=== PATIENT | female | born 1985 | race American Indian/Alaskan Native ===

== ENCOUNTER 2018-03-21 11:30 | Observation (INO) | payer MEDICAID ==
--- NOTE | 2018-03-21 14:13 | Emergency Department Report ---
ED Chest Pain HPI - General Chief Complaint: Chest Pain Stated Complaint: CHEST PAINS Time Seen by Provider: 03/21/18 14:13 Source: patient Mode of arrival: Ambulatory Limitations: No Limitations - History of Present Illness Initial Comments: Patient said while she was at work this afternoon, she accidentally placed her chest on a magnet and her AICD made a loud noise. She began having chest pain afterwards. She came to the ED to have her AICD evaluated. MD Complaint: chest pain -: Sudden, This afternoon Onset: during rest Pain Location: left chest Pain Radiation: none Severity: moderate Severity scale (0 -10): 6 Quality: aching, heaviness Consistency: constant Improves With: nothing Worsens With: nothing re: denies: nausea, vomting, diaphoresis Other Symptoms: denies: fever, palpitations Treatments Prior to Arrival: none Aspirin use within the Past 7 Days: (0) No - Related Data On Oral Contraceptives: No Previous Rx's Medication Instructions Recorded Last Taken Type ALBUTEROL Inhaler (OR & NICU) 2 puff IH QID PRN #1 inhalation 12/24/13 Unknown Rx [ProAir HFA Inhaler] Furosemide [Lasix] 20 mg PO DAILY #20 tablet 12/24/13 Unknown Rx predniSONE [Deltasone] 20 mg PO QDAY #5 tab 12/24/13 Unknown Rx ALBUTEROL NEB's [Proventil 0.083% 2.5 mg IH Q4HR PRN #30 neb 10/04/14 Unknown Rx NEBS] predniSONE [Deltasone] 50 mg PO QDAY #4 tab 10/04/14 Unknown Rx Albuterol Sulfate [Ventolin HFA] 2 puff IH Q4H PRN #1 hfa.aer.ad 02/27/15 Unknown Rx HYDROcodone/APAP 5-325 [[place] 1 each PO Q6HR PRN #20 tablet 02/27/15 Unknown Rx 5-325 mg TAB] Ibuprofen [Motrin 600 MG tab] 600 mg PO Q8H PRN #40 tablet 02/27/15 Unknown Rx metroNIDAZOLE [Flagyl TAB] 500 mg PO Q12HR #20 tab 02/27/15 Unknown Rx Allergies Allergy/AdvReac Type Severity Reaction Status Date / Time No Known Allergies Allergy Verified 04/07/16 16:41 Heart Score - HEART Score History: Slightly suspicious EKG: Non-specific Age: < 45 Risk factors: 1-2 risk factors Troponin: < normal limit HEART Score: 2 - Critical Actions Critical Actions: 0-3 pts:0.9-1.7%risk of adverse cardiac event.Candidate for discharge ED Review of Systems ROS: Stated complaint: CHEST PAINS Other details as noted in HPI Comment: All other systems reviewed and negative Constitutional: denies: chills, fever Eyes: denies: eye pain ENT: denies: ear pain Respiratory: denies: cough, shortness of breath Cardiovascular: chest pain. denies: palpitations, dyspnea on exertion, orthopnea Endocrine: no symptoms reported Gastrointestinal: denies: abdominal pain, nausea, vomiting, diarrhea Genitourinary: denies: urgency, dysuria Musculoskeletal: denies: back pain, joint swelling Skin: denies: rash, lesions Neurological: denies: headache, weakness Psychiatric: denies: anxiety, depression Hematological/Lymphatic: denies: easy bleeding, easy bruising ED Past Medical Hx - Past Medical History Previous Medical History?: Yes Hx Hypertension: Yes Hx Congestive Heart Failure: Yes Hx GERD: Yes Hx Asthma: Yes Additional medical history: sleep apnea - Surgical History Hx Internal Defibrillator: Yes (replaced 09/30/2016 serial #[id number] model # [id number] [employer] [phone]) Hx Cholecystectomy: Yes Additional Surgical History: DC section. Tubal ligation. [employer] replaced 04/[address] Victor Hugo Estrada MD [phone], serial #[id number] model #[id number] , [employer] [phone] - Social History Smoking Status: Former Smoker Substance Use Type: None - Medications Home Medications: Home Medications Medication Instructions Recorded Confirmed Last Taken Type ALBUTEROL Inhaler (OR & NICU) 2 puff IH QID PRN #1 inhalation 12/24/13 Unknown Rx [ProAir HFA Inhaler] Furosemide [Lasix] 20 mg PO DAILY #20 tablet 12/24/13 Unknown Rx predniSONE [Deltasone] 20 mg PO QDAY #5 tab 12/24/13 Unknown Rx ALBUTEROL NEB's [Proventil 0.083% 2.5 mg IH Q4HR PRN #30 neb 10/04/14 Unknown Rx NEBS] predniSONE [Deltasone] 50 mg PO QDAY #4 tab 10/04/14 Unknown Rx Albuterol Sulfate [Ventolin HFA] 2 puff IH Q4H PRN #1 hfa.aer.ad 02/27/15 Unknown Rx HYDROcodone/APAP 5-325 [[place] 1 each PO Q6HR PRN #20 tablet 02/27/15 Unknown Rx 5-325 mg TAB] Ibuprofen [Motrin 600 MG tab] 600 mg PO Q8H PRN #40 tablet 02/27/15 Unknown Rx metroNIDAZOLE [Flagyl TAB] 500 mg PO Q12HR #20 tab 02/27/15 Unknown Rx ED Physical Exam - General Limitations: No Limitations General appearance: alert, in no apparent distress, obese - Head Head exam: Present: atraumatic, normocephalic, normal inspection - Eye Eye exam: Present: normal appearance, PERRL, EOMI Pupils: Present: normal accommodation - ENT ENT exam: Present: normal exam, normal orophraynx, mucous membranes moist - Neck Neck exam: Present: normal inspection, full ROM. Absent: tenderness - Respiratory Respiratory exam: Present: normal lung sounds bilaterally. Absent: respiratory distress, wheezes, rales, rhonchi, stridor - Cardiovascular Cardiovascular Exam: Present: regular rate, normal rhythm, normal heart sounds - GI/Abdominal GI/Abdominal exam: Present: soft, normal bowel sounds. Absent: distended, tenderness, guarding, rebound, rigid - Extremities Exam Extremities exam: Present: normal inspection, full ROM, normal capillary refill. Absent: tenderness - Back Exam Back exam: Present: normal inspection, full ROM. Absent: tenderness - Neurological Exam Neurological exam: Present: alert, oriented X3, CN II-XII intact - Psychiatric Psychiatric exam: Present: normal affect, normal mood - Skin Skin exam: Present: warm, dry, intact, normal color. Absent: rash ED Course Vital Signs 03/21/18 03/21/18 11:40 14:40 Temperature 98.2 F 98.3 F Pulse Rate 75 69 Respiratory 18 16 Rate Blood Pressure 122/72 Blood Pressure 147/82 [Left] O2 Sat by Pulse 100 100 Oximetry - Reevaluation(s) Reevaluation #1: 03/21/18 16:50 I consulted Correction Warden tourist information assistant Dr Jones and the mid level provider came to the ED and evaluated patient and recommend interrogation of the AICD. 03/21/18 17:01 Patient care was discussed with the hospitalist tourist information assistant Dr Todd. He will admit patient to the hospital for further evaluation. 03/21/18 17:07 I called the real estate representative for [employer] and he said the earliest they can send someone to interrogate the AICD is tomorrow morning. Patient will be admitted to the hospital. PRINCESS score - Princess Score Age > 65: (0) No Aspirin use within the Past 7 Days: (0) No 3 or more CAD Risk Factors: (0) No 2 or more Angina events in past 24 hrs: (0) No Known CAD with more than 50% Stenosis: (0) No Elevated Cardiac Markers: (0) No ST Deviation Greater than 0.5mm: (0) No PRINCESS Score: 0 ED Medical Decision Making - Lab Data Result diagrams: 03/21/18 14:53 03/21/18 14:53 - EKG Data -: EKG Interpreted by Me EKG shows normal: sinus rhythm Rate: normal (74) - EKG Data When compared to previous EKG there are: changes noted Interpretation: nonspecific ST-T wave erendira, LVH 03/21/18 15:18 No STEMI. - Radiology Data Radiology results: report reviewed, image reviewed - Medical Decision Making Chest Pain. Critical care attestation.: If time is entered above; I have spent that time in minutes in the direct care of this critically ill patient, excluding procedure time. ED Disposition Clinical Impression: Chest pain Disposition: OP ADMIT IP TO THIS HOSP Is pt being admited?: Yes Does the pt Need Aspirin: Yes Condition: Stable Instructions: Chest Pain (ED) Referrals: PRIMARY CARE, [Primary Care Provider] - 3-5 Days Time of Disposition: 17:04
[2018-03-21] MEDS ORDERED: BABY ASPIRIN PO ONE (14:25)
--- NOTE | 2018-03-21 15:13 | XRay Report ---
AP CHEST: HISTORY: chest pain AP view of the chest demonstrates a normal mediastinal and cardiac contour with clear lungs and normal bony and soft tissue structures. A single lead pacemaker device terminates in the right ventricle. IMPRESSION: Unremarkable AP chest.
[2018-03-21 15:32] LABS: Alanine Aminotransferase 8 units/L (7-56); Albumin 3.6 g/dL (3.9-5); BUN/Creatinine Ratio 15; Blood Urea Nitrogen 9 mg/dL (7-17); Calcium 8.5 mg/dL (8.4-10.2); Hemolysis Index 5
[2018-03-21 15:57] LABS: Basophils % (Auto) 0.5 % (0.0-1.8); Eosinophils # (Auto) 0.4 K/mm3 (0.0-0.4); Hematocrit 34.7 % (30.3-42.9); Hemoglobin 11.1 gm/dl (10.1-14.3); Mean Corpuscular HGB Conc 32 % (30-34); Mean Corpuscular Volume 73 fl (79-97); Monocytes # (Auto) 0.4 K/mm3 (0.0-0.8); Monocytes % (Auto) 4.7 % (0.0-7.3); Platelet Count 360 K/mm3 (140-440); Red Blood Count 4.73 M/mm3 (3.65-5.03); Red Cell Distribution Width 15.4 % (13.2-15.2)
[2018-03-21 16:03] LABS: Mean Corpuscular Hemoglobin 24 pg (28-32)
[2018-03-21 16:08] LABS: INR 1.02 (0.87-1.13); Partial Thromboplastin Time 33.2 Sec. (24.2-36.6)
--- NOTE | 2018-03-21 16:22 | Consultation ---
History of Present Illness Consult date: 03/21/18 Requesting physician: DEISY ELMORE Consult reason: chest pain, other (AICD interrogation ) History of present illness: The pt is a 32 YO female with a past medical history significant for HTN, DM, rupali- cardiomyopathy, AICD in situ (placed in 2011 following the of her twins). She recently moved to [place] from [place]. She presented with complaints of chest pain surrounding her defibrillator and noise from her defibrillator. 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 She then heard a "crunching" sound coming from her AICD site and decided to present to the ED for further evaluation. She states that she is currently experiencing a burning pain surrounding her AICD site. She denies any other complaints. She last saw her surgical training specialist in [place] one year ago and has had no follow up since then. Past History Past Medical History: diabetes, heart failure, hypertension Past Surgical History: Other (AICD in situ) Social history: denies: smoking, alcohol abuse, prescription drug abuse Medications and Allergies Allergies Allergy/AdvReac Type Severity Reaction Status Date / Time No Known Allergies Allergy Verified 04/07/16 16:41 Home Medications Medication Instructions Recorded Confirmed Last Taken Type ALBUTEROL Inhaler (OR & NICU) 2 puff IH QID PRN #1 inhalation 12/24/13 Unknown Rx [ProAir HFA Inhaler] Furosemide [Lasix] 20 mg PO DAILY #20 tablet 12/24/13 Unknown Rx predniSONE [Deltasone] 20 mg PO QDAY #5 tab 12/24/13 Unknown Rx ALBUTEROL NEB's [Proventil 0.083% 2.5 mg IH Q4HR PRN #30 neb 10/04/14 Unknown Rx NEBS] predniSONE [Deltasone] 50 mg PO QDAY #4 tab 10/04/14 Unknown Rx Albuterol Sulfate [Ventolin HFA] 2 puff IH Q4H PRN #1 hfa.aer.ad 02/27/15 Unknown Rx HYDROcodone/APAP 5-325 [[place] 1 each PO Q6HR PRN #20 tablet 02/27/15 Unknown Rx 5-325 mg TAB] Ibuprofen [Motrin 600 MG tab] 600 mg PO Q8H PRN #40 tablet 02/27/15 Unknown Rx metroNIDAZOLE [Flagyl TAB] 500 mg PO Q12HR #20 tab 02/27/15 Unknown Rx Review of Systems Constitutional: no weight loss, no weight gain, no fever, no chills, no sweats Ears, nose, mouth and throat: no ear pain, no nose pain, no sinus pressure, no sinus pain Cardiovascular: chest pain, high blood pressure, no orthopnea, no palpitations, no rapid/irregular heart beat, no edema, no syncope, no lightheadedness, no shortness of breath, no dyspnea on exertion Respiratory: no cough, no shortness of breath, no dyspnea on exertion, no congestion, no wheezing, no pain on inspiration Gastrointestinal: no abdominal pain, no nausea, no vomiting, no diarrhea, no constipation, no change in bowel habits Genitourinary Female: no pelvic pain, no flank pain, no dysuria, no urinary frequency, no urgency Musculoskeletal: no neck stiffness, no neck pain Integumentary: no rash, no pruritis, no redness, no sores, no wounds Neurological: no head injury, no paralysis, no weakness, no parathesias, no numbness, no tingling, no seizures, no syncope Psychiatric: no anxiety Endocrine: no cold intolerance, no heat intolerance Hematologic/Lymphatic: no easy bruising, no easy bleeding Allergic/Immunologic: no urticaria, no wheezing Physical Examination Vital Signs Temp Pulse Resp BP Pulse Ox 98.2 F 75 18 122/72 100 03/21/18 11:40 03/21/18 11:40 03/21/18 11:40 03/21/18 11:40 03/21/18 11:40 General appearance: no acute distress HEENT: Positive: PERRL, Normocephaly, Mucus Membranes Moist Neck: Positive: neck supple, trachea midline Cardiac: Positive: Reg Rate and Rhythm, S1/S2 Lungs: Positive: clear to auscultation Neuro: Positive: Grossly Intact Abdomen: Positive: Soft. Negative: Tender Skin: Positive: Clear. Negative: Rash, Wound Musculoskeletal: No Fluid Collection, No Pain, Normal Range of Motion Extremities: Absent: edema Results 03/21/18 14:53 03/21/18 14:53 Cardiac Enzymes 03/21/18 Range/Units 14:53 AST 12 (5-40) units/L Coagulation 03/21/18 Range/Units 14:53 PT 13.9 (12.2-14.9) Sec. INR 1.02 (0.87-1.13) APTT 33.2 (24.2-36.6) Sec. CBC 03/21/18 Range/Units 14:53 WBC 8.9 (4.5-11.0) K/mm3 RBC 4.73 (3.65-5.03) M/mm3 Hgb 11.1 (10.1-14.3) gm/dl Hct 34.7 (30.3-42.9) % Plt Count 360 (140-440) K/mm3 Lymph # 3.0 (1.2-5.4) K/mm3 [place] # 0.4 (0.0-0.8) K/mm3 Eos # 0.4 (0.0-0.4) K/mm3 Baso # 0.0 (0.0-0.1) K/mm3 Comprehensive Metabolic Panel 03/21/18 Range/Units 14:53 Sodium 141 (137-145) mmol/L Potassium 4.1 (3.6-5.0) mmol/L Chloride 104.1 (98-107) mmol/L Carbon Dioxide 24 (22-30) mmol/L BUN 9 (7-17) mg/dL Creatinine 0.6 L (0.7-1.2) mg/dL Glucose 100 (65-100) mg/dL Calcium 8.5 (8.4-10.2) mg/dL AST 12 (5-40) units/L ALT 8 (7-56) units/L Alkaline Phosphatase 98 (35-129) units/L Total Protein 6.6 (6.3-8.2) g/dL Albumin 3.6 L (3.9-5) g/dL - Imaging and Cardiology EKG: report reviewed, image reviewed EKG interpretations - Telemetry EKG Rhythm: Sinus Rhythm - EKG Sinus rhythms and dysrhythmias: sinus rhythm Assessment and Plan Resume home cardiac regimen. Await AICD interrogation. The patient has been seen in conjunction with Dr. Ibarra who agrees with the assessment and plan of care. - Patient Problems (1) Chest pain Current Visit: Yes Status: Acute Qualifiers: Chest pain type: unspecified Qualified Code(s): R07.9 - Chest pain, unspecified (2) Cardiomyopathy Current Visit: Yes Status: Chronic (3) Automatic implantable cardioverter-defibrillator in situ Current Visit: Yes Status: Chronic (4) HTN (hypertension) Current Visit: Yes Status: Chronic (5) Diabetes Current Visit: Yes Status: Chronic (6) Obesity Current Visit: Yes Status: Chronic
[2018-03-21] MEDS ORDERED: ZOFRAN ONE ×2 (17:51→21:28)
[2018-03-21] MEDS ORDERED: ZOFRAN IV ONE ×2 (17:54→21:24)
[2018-03-21] MEDS ORDERED: MORPHINE ONE (18:54)
[2018-03-21] MEDS: MORPHINE IV PRN (18:57)
[2018-03-21 18:58] LABS: Bilirubin,Urine NEG (Negative); Blood,Urine SM (Negative); Color,Urine Yellow (Yellow); Mucus,Urine 1+ /HPF; Protein,Urine <15 mg/dL mg/dL (Negative); WBC,Urine < 1.0 /HPF (0.0-6.0)
[2018-03-21 19:04] LABS: Amphetamine Screen,Urine PRESUMPTIVE NEGATIVE; Benzodiazepines Screen,Urine PRESUMPTIVE NEGATIVE; Cannabinoid Screen,Urine PRESUMPTIVE NEGATIVE; Cocaine Screen,Urine PRESUMPTIVE NEGATIVE; Methadone Screen,Urine PRESUMPTIVE NEGATIVE; Opiate Screen,Urine PRESUMPTIVE NEGATIVE
--- NOTE | 2018-03-21 22:01 | History and Physical Report ---
History of Present Illness Date of examination: 03/21/18 Date of admission: 03/21/18 17:05 Chief complaint: CC Patient complains that she was exposed to a magnet at work and her pacemaker gave some crunching sound No Shock History of present illness: History of Present Illness The pt is a 32 YO female with a past medical history significant for HTN, DM, rupali- cardiomyopathy, AICD in situ (placed in 2011 following the of her twins).She presented with complaints of chest pain surrounding her defibrillator and noise from her defibrillator. 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 She then heard a "crunching" sound coming from her AICD site and decided to present to the ED for further evaluation. She states that she is currently experiencing a burning pain surrounding her AICD site. She denies any other complaints. She last saw her firewall security engineer in [place] one year ago and has had no follow up since then. Past History Past Medical History: diabetes, heart failure, hypertension Past Surgical History: Other (AICD in situ) Social history: denies: smoking, alcohol abuse, prescription drug abuse Review of Systems Constitutional: no weight loss, no weight gain, no fever, no chills, no sweats Ears, nose, mouth and throat: no ear pain, no nose pain, no sinus pressure, no sinus pain Cardiovascular: chest pain, high blood pressure, no orthopnea, no palpitations, no rapid/irregular heart beat, no edema, no syncope, no lightheadedness, no shortness of breath, no dyspnea on exertion Respiratory: no cough, no shortness of breath, no dyspnea on exertion, no congestion, no wheezing, no pain on inspiration Gastrointestinal: no abdominal pain, no nausea, no vomiting, no diarrhea, no constipation, no change in bowel habits Genitourinary Female: no pelvic pain, no flank pain, no dysuria, no urinary frequency, no urgency Musculoskeletal: no neck stiffness, no neck pain Integumentary: no rash, no pruritis, no redness, no sores, no wounds Neurological: no head injury, no paralysis, no weakness, no parathesias, no numbness, no tingling, no seizures, no syncope Psychiatric: no anxiety Endocrine: no cold intolerance, no heat intolerance Hematologic/Lymphatic: no easy bruising, no easy bleeding Allergic/Immunologic: no urticaria, no wheezing Past History Past Medical History: diabetes, heart failure, hypertension Past Surgical History: Other (AICD in situ) Social history: denies: smoking, alcohol abuse, prescription drug abuse Medications and Allergies Allergies Allergy/AdvReac Type Severity Reaction Status Date / Time No Known Allergies Allergy Verified 04/07/16 16:41 Home Medications Medication Instructions Recorded Confirmed Last Taken Type Carvedilol [Coreg] 6.25 mg PO BID 03/21/18 03/21/18 Unknown History Digoxin [Lanoxin] 0.25 mg PO DAILY 03/21/18 03/21/18 Unknown History Furosemide [Lasix TAB] 40 mg PO QDAY 03/21/18 03/21/18 Unknown History Metformin HCl [Metformin HCl ER] 1,000 mg PO QDAY 03/21/18 03/21/18 Unknown History Active Meds: Active Medications Morphine Sulfate (Morphine) 2 mg IV Q3H PRN PRN Reason: Pain, Moderate (4-6) Last Admin: 03/21/18 18:57 Dose: 2 mg Exam - Constitutional Vitals: Temp Pulse Resp BP Pulse Ox 98.5 F 74 14 132/66 100 03/21/18 19:15 03/21/18 19:15 03/21/18 19:15 03/21/18 19:15 03/21/18 19:15 General appearance: Present: no acute distress, well-nourished - EENT Eyes: Present: PERRL ENT: hearing intact, clear oral mucosa - Neck Neck: Present: supple, normal ROM - Respiratory Respiratory effort: normal Respiratory: bilateral: CTA - Cardiovascular Heart Sounds: Present: S1 & S2. Absent: rub, click - Extremities Extremities: pulses symmetrical, No edema Peripheral Pulses: within normal limits - Abdominal General gastrointestinal: Present: soft, non-tender, non-distended, normal bowel sounds Female genitourinary: Present: normal - Integumentary Integumentary: Present: clear, warm, dry - Musculoskeletal Musculoskeletal: gait normal, strength equal bilaterally - Psychiatric Psychiatric: appropriate mood/affect, intact judgment & insight - Neurologic Neurologic: CNII-XII intact, moves all extremities Results - Labs CBC & Chem 7: 03/21/18 14:53 03/21/18 14:53 Labs: Laboratory Last Values WBC 8.9 K/mm3 (4.5-11.0) 03/21/18 14:53 RBC 4.73 M/mm3 (3.65-5.03) 03/21/18 14:53 Hgb 11.1 gm/dl (10.1-14.3) 03/21/18 14:53 Hct 34.7 % (30.3-42.9) 03/21/18 14:53 MCV 73 fl (79-97) L 03/21/18 14:53 MCH 24 pg (28-32) L 03/21/18 14:53 MCHC 32 % (30-34) 03/21/18 14:53 RDW 15.4 % (13.2-15.2) H 03/21/18 14:53 Plt Count 360 K/mm3 (140-440) 03/21/18 14:53 Lymph % (Auto) 34.0 % (13.4-35.0) 03/21/18 14:53 [place] % (Auto) 4.7 % (0.0-7.3) 03/21/18 14:53 Eos % (Auto) 5.0 % (0.0-4.3) H 03/21/18 14:53 Baso % (Auto) 0.5 % (0.0-1.8) 03/21/18 14:53 Lymph # 3.0 K/mm3 (1.2-5.4) 03/21/18 14:53 [place] # 0.4 K/mm3 (0.0-0.8) 03/21/18 14:53 Eos # 0.4 K/mm3 (0.0-0.4) 03/21/18 14:53 Baso # 0.0 K/mm3 (0.0-0.1) 03/21/18 14:53 Seg Neutrophils % 55.8 % (40.0-70.0) 03/21/18 14:53 Seg Neutrophils # 4.9 K/mm3 (1.8-7.7) 03/21/18 14:53 PT 13.9 Sec. (12.2-14.9) 03/21/18 14:53 INR 1.02 (0.87-1.13) 03/21/18 14:53 APTT 33.2 Sec. (24.2-36.6) 03/21/18 14:53 Sodium 141 mmol/L (137-145) 03/21/18 14:53 Potassium 4.1 mmol/L (3.6-5.0) 03/21/18 14:53 Chloride 104.1 mmol/L (98-107) 03/21/18 14:53 Carbon Dioxide 24 mmol/L (22-30) 03/21/18 14:53 Anion Gap 17 mmol/L 03/21/18 14:53 BUN 9 mg/dL (7-17) 03/21/18 14:53 Creatinine 0.6 mg/dL (0.7-1.2) L 03/21/18 14:53 Estimated GFR > 60 ml/min 03/21/18 14:53 BUN/Creatinine Ratio 15 % 03/21/18 14:53 Glucose 100 mg/dL (65-100) 03/21/18 14:53 Calcium 8.5 mg/dL (8.4-10.2) 03/21/18 14:53 Total Bilirubin 0.20 mg/dL (0.1-1.2) 03/21/18 14:53 AST 12 units/L (5-40) 03/21/18 14:53 ALT 8 units/L (7-56) 03/21/18 14:53 Alkaline Phosphatase 98 units/L (35-129) 03/21/18 14:53 Troponin T < 0.010 ng/mL (0.00-0.029) 03/21/18 14:53 Total Protein 6.6 g/dL (6.3-8.2) 03/21/18 14:53 Albumin 3.6 g/dL (3.9-5) L 03/21/18 14:53 Albumin/Globulin Ratio 1.2 % 03/21/18 14:53 Urine Color Yellow (Yellow) 03/21/18 18:44 Urine Turbidity Clear (Clear) 03/21/18 18:44 Urine pH 5.0 (5.0-7.0) 03/21/18 18:44 Ur Specific [place] 1.029 (1.003-1.030) 03/21/18 18:44 Urine Protein <15 mg/dl mg/dL (Negative) 03/21/18 18:44 Urine Glucose (UA) Neg mg/dL (Negative) 03/21/18 18:44 Urine Ketones Neg mg/dL (Negative) 03/21/18 18:44 Urine Blood Sm (Negative) 03/21/18 18:44 Urine Nitrite Neg (Negative) 03/21/18 18:44 Urine Bilirubin Neg (Negative) 03/21/18 18:44 Urine Urobilinogen 4.0 mg/dL (<2.0) 03/21/18 18:44 Ur Leukocyte Esterase Neg (Negative) 03/21/18 18:44 Urine WBC (Auto) < 1.0 /HPF (0.0-6.0) 03/21/18 18:44 Urine RBC (Auto) 4.0 /HPF (0.0-6.0) 03/21/18 18:44 U Epithel Cells (Auto) 1.0 /HPF (0-13.0) 03/21/18 18:44 Urine Mucus 1+ /HPF 03/21/18 18:44 Urine Opiates Screen Presumptive negative 03/21/18 18:44 Urine Methadone Screen Presumptive negative 03/21/18 18:44 Ur Barbiturates Screen Presumptive negative 03/21/18 18:44 Ur Phencyclidine Scrn Presumptive negative 03/21/18 18:44 Ur Amphetamines Screen Presumptive negative 03/21/18 18:44 U Benzodiazepines Scrn Presumptive negative 03/21/18 18:44 Urine Cocaine Screen Presumptive negative 03/21/18 18:44 U Marijuana (THC) Screen Presumptive negative 03/21/18 18:44 Drugs of Abuse Note Disclamer 03/21/18 18:44 Assessment and Plan Advance Directives: Yes (FC) VTE prophylaxis?: Chemical Plan of care discussed with patient/family: Yes - Patient Problems (1) Implantable defibrillator reprogramming/check Current Visit: Yes Status: Acute Plan to address problem: Needs interrogation [employer] to interrogate on morning Patient may be discharged after interrogation -if Cleared Cardiology consulted (2) Chest pain Current Visit: Yes Status: Inactive Qualifiers: Chest pain type: unspecified Qualified Code(s): R07.9 - Chest pain, unspecified Plan to address problem: There was no chest pain Had some discomfort from exposure to magnet--very transient discomfort No stress test ordered (3) Cardiomyopathy Current Visit: Yes Status: Chronic (4) Diabetes Current Visit: Yes Status: Chronic Qualifiers: Diabetes mellitus type: type 2 Plan to address problem: coverage (5) HTN (hypertension) Current Visit: Yes Status: Chronic Qualifiers: Hypertension type: essential hypertension Qualified Code(s): I10 - Essential (primary) hypertension Plan to address problem: Cont antihypertensives (6) DVT prophylaxis Current Visit: Yes Status: Acute Plan to address problem: on lovenox
[2018-03-22] MEDS: MORPHINE IV PRN ×2 (00:27→10:20)
[2018-03-22] MEDS: COREG PO SCH ×2 (01:44→10:21)
[2018-03-22 05:30] VITALS: BP 140/92
[2018-03-22] MEDS ORDERED: GLUCOPHAGE XR PO SCH (08:00)
--- NOTE | 2018-03-22 08:57 | Discharge Summary ---
Providers - Providers Date of Admission: 03/21/18 17:05 Date of discharge: 03/22/18 Attending physician: CHELSEA KRAUSE 03/21/18 16:07 Consult to Physician [CONS] Stat Comment: Consulting Provider: EVERETTE BENOIT Physician Instructions: Reason For Exam: Chest Pain Primary care physician: WELDING PANTOGRAPH MACHINE OPERATOR Hospitalization Condition: Stable Hospital course: Patient is a 32 yo woman with a past medical history significant for HTN, DM, rupali- cardiomyopathy, AICD in situ (placed in 2011 following the of her twins).She presented with complaints of chest pain surrounding her defibrillator and noise from her defibrillator. 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 She then heard a "crunching" sound coming from her AICD site and decided to present to the ED for further evaluation. She states that she is currently experiencing a burning pain surrounding her AICD site. She denies any other complaints. She last saw her toggle press folder and feeder in [place] one year ago and has had no follow up since then (1) Implantable defibrillator reprogramming/check Current Visit: Yes Status: Acute Plan to address problem: Needs interrogation [email or web address] to interrogate Today Patient may be discharged after interrogation if AICD normal per Cardiology but she couldn't wait for the Substation Maintenance Technician to review the results, so she signed out AMA (2) Chest pain Current Visit: Yes Status: Inactive Qualifiers: Chest pain type: unspecified Qualified Code(s): R07.9 - Chest pain, unspecified Plan to address problem: There was no chest pain Had some discomfort from exposure to magnet--very transient discomfort No stress test ordered (3) Cardiomyopathy Current Visit: Yes Status: Chronic (4) Diabetes Current Visit: Yes Status: Chronic Qualifiers: Diabetes mellitus type: type 2 Plan to address problem: coverage (5) HTN (hypertension) Current Visit: Yes Status: Chronic Qualifiers: Hypertension type: essential hypertension Qualified Code(s): I10 - Essential (primary) hypertension Plan to address problem: Cont antihypertensives (6) DVT prophylaxis Current Visit: Yes Status: Acute Plan to address problem: on lovenox Disposition: DC-07 LEFT AGAINST MED ADVICE Time spent for discharge: 32 minutes Core Measure Documentation - Palliative Care Palliative Care/ Comfort Measures: Not Applicable - Core Measures Any of the following diagnoses?: none - VTE Discharge Requirements Deep Vein Thrombosis/Pulmonary Embolism Present on Admission: No Has pt received <5 days of overlap therapy or INR<2.0: No Anticoagulant overlap therapy prescribed at discharge: No Contraindication No Overlap Therapy order at DC: Not Indicated Exam - Physical Exam Narrative exam: GEN: WDWN, NAD, Awake, Alert, Orientated HEENT: NCAT, EOMI, PERRL, OP Clear NECK: supple, no adenopathy, no thyromegaly, no JVD CVS/HEART: RRR, normal S1S2, pulses present bilaterally CHEST/LUNGS: CTA B, Symmetrical chest expansion, good air entry bilaterally GI/Abdomen: soft, NTND, good bowel sounds, no guarding or rebound /Bladder: no suprapubic tenderness, no CVA or paraspinal tenderness EXT/Skin: no c/c/e, no obvious rash MSK: FROM x 4 Neuro: CN 2-12 grossly intact, no new focal deficits Psych: calm - Constitutional Vitals: Temp Pulse Resp BP Pulse Ox 97.9 F 74 20 140/92 98 03/22/18 05:00 03/22/18 05:00 03/22/18 05:00 03/22/18 05:00 03/22/18 05:00 Plan Follow up with: ROSANNA SPARKS MD [Primary Care Provider] - 3-5 Days EVERETTE BENOIT MD [Staff Physician] - 7 Days
[2018-03-22] MEDS ORDERED: LANOXIN PO SCH (10:00)
[2018-03-22] MEDS ORDERED: LASIX PO SCH (10:00)
[2018-03-22] MEDS ORDERED: HumaLOG SUB-Q SCH (11:30)
--- NOTE | 2018-03-22 11:46 | Event Note ---
Date: 03/22/18 Spoke with device rep - device interrogation this AM revealed normal device function. Pt left AGAINST MEDICAL ADVICE prior to cardiology evaluation. Martin ARREOLA NP / DR. BENOIT
== END 2018-03-22 11:44 | disposition left against medical advice (07) ==
LOC: ED 11:30 → 4A 17:05 → INTOOBSV 17:05 → 4A 19:53
PROVIDERS: ADMIT Internal Medicine; ATTEND Internal Medicine
DX: Z45.02 Encounter for adjustment and management of automatic implantable cardiac defibrillator (principal); I42.9 Cardiomyopathy, unspecified; I11.0 Hypertensive heart disease with heart failure; I50.9 Heart failure, unspecified; E11.9 Type 2 diabetes mellitus without complications; E66.9 Obesity, unspecified; Z95.810 Presence of automatic (implantable) cardiac defibrillator; Z79.84 Long term (current) use of oral hypoglycemic drugs; Z79.899 Other long term (current) drug therapy
CPT/HCPCS: 36415; 71045; 80053; 80307; 81001; 84484; 85025; 85610; 85730; 93005; 93010; 96374; 96375; 96376; G0378; J2270; J2405

== ENCOUNTER 2019-03-20 19:40 | Emergency (ER) | payer MEDICAID ==
--- NOTE | 2019-03-20 20:01 | Event Note ---
ED Screening Note Date of service: 03/20/19 (n) Time: 19:57 ED Screening Note: presents with cc of sob/ coughing x 2days admits tightening to chest area, midsternal cp with couc This initial assessment/diagnostic orders/clinical plan/treatment(s) is/are subject to change based on patients health status, clinical progression and re- assessment by fellow clinical providers in the ED. Further treatment and workup at subsequent clinical providers discretion. Patient/guardian urged not to elope from the ED as their condition may be serious if not clinically assessed and managed. Initial orders include: labs cxr
[2019-03-20 20:51] LABS: Hematocrit 37.7 % (30.3-42.9); Hemoglobin 11.9 gm/dl (10.1-14.3); Red Blood Count 5.11 M/mm3 (3.65-5.03)
[2019-03-20 20:52] LABS: Mean Corpuscular HGB Conc 32 % (30-34); Mean Corpuscular Volume 74 fl (79-97); Platelet Count 410 K/mm3 (140-440); Red Cell Distribution Width 16.5 % (13.2-15.2)
[2019-03-20] MEDS ORDERED: DUONEB *Not for PRN Use IH ONE (21:04)
[2019-03-20 21:51] LABS: BUN/Creatinine Ratio 16; Blood Urea Nitrogen 11 mg/dL (7-17)
[2019-03-20 21:52] LABS: Creatine Kinase MB 1.6 ng/mL (0.0-4.0)
--- NOTE | 2019-03-20 22:05 | XRay Report ---
CHEST 2 VIEWS INDICATION / CLINICAL INFORMATION: Dyspnea. COMPARISON: None available. FINDINGS: SUPPORT DEVICES: ICD on the left HEART / MEDIASTINUM: No significant abnormality. LUNGS / PLEURA: No significant pulmonary or pleural abnormality. No pneumothorax. ADDITIONAL FINDINGS: No significant additional findings. IMPRESSION: 1. No acute findings. Signer Name: Vijay Smith MD Signed: 03/20/2019 10:01 PM Workstation Name: [id number]
[2019-03-20] MEDS ORDERED: ATROVENT IH ONE (22:16)
[2019-03-20] MEDS ORDERED: SOLU-Medrol IM ONE (22:16)
[2019-03-20] MEDS ORDERED: PROVENTIL IH ONE (22:16)
--- NOTE | 2019-03-20 22:41 | Emergency Department Report ---
ED Shortness of Breath HPI - General Chief Complaint: Dyspnea/Respdistress Stated Complaint: COUGH, TIGHTNESS IN CHEST, SOB Time Seen by Provider: 03/20/19 19:56 Source: patient Mode of arrival: Ambulatory Limitations: No Limitations - History of Present Illness Initial Comments: Patient is 33 years old female, morbidly obese with history of CHF, COPD and diabetes. Patient presented to the ER complaining of difficulty in breathing and cough, productive with greenish sputum for the last 3 days. Patient denied any fever or chills. Patient also denied any nausea or vomiting. MD Complaint: shortness of breath, cough - Related Data Home Medications Medication Instructions Recorded Confirmed Last Taken Carvedilol [Coreg] 6.25 mg PO BID 03/21/18 03/21/18 Unknown Digoxin [Lanoxin] 0.25 mg PO DAILY 03/21/18 03/21/18 Unknown Furosemide [Lasix TAB] 40 mg PO QDAY 03/21/18 03/21/18 Unknown Metformin HCl [Metformin HCl ER] 1,000 mg PO QDAY 03/21/18 03/21/18 Unknown Allergies Allergy/AdvReac Type Severity Reaction Status Date / Time No Known Allergies Allergy Verified 04/07/16 16:41 ED Review of Systems ROS: Stated complaint: COUGH, TIGHTNESS IN CHEST, SOB Other details as noted in HPI Comment: All other systems reviewed and negative Constitutional: denies: chills, fever Respiratory: cough, shortness of breath, SOB with exertion, SOB at rest, wheezing Cardiovascular: denies: chest pain, palpitations Gastrointestinal: denies: abdominal pain, nausea, vomiting Musculoskeletal: denies: back pain ED Past Medical Hx - Past Medical History Previous Medical History?: Yes Hx Hypertension: Yes Hx Congestive Heart Failure: Yes Hx GERD: Yes Hx Asthma: Yes Additional medical history: sleep apnea - Surgical History Past Surgical History?: Yes Hx Pacemaker: Yes (REPLACED 09/30/16) Hx Internal Defibrillator: Yes (replaced 09/30/2016 serial #[id number] model #[id number] [employer] [phone]) Hx Cholecystectomy: Yes Additional Surgical History: DC section. Tubal ligation. Medtronic replaced 09/30/[address] Victor Hugo Estrada MD [phone], serial #[id number] model #[id number], [employer] [phone] - Social History Smoking Status: Never Smoker Substance Use Type: None - Medications Home Medications: Home Medications Medication Instructions Recorded Confirmed Last Taken Type Carvedilol [Coreg] 6.25 mg PO BID 03/21/18 03/21/18 Unknown History Digoxin [Lanoxin] 0.25 mg PO DAILY 03/21/18 03/21/18 Unknown History Furosemide [Lasix TAB] 40 mg PO QDAY 03/21/18 03/21/18 Unknown History Metformin HCl [Metformin HCl ER] 1,000 mg PO QDAY 03/21/18 03/21/18 Unknown History ED Physical Exam - General Limitations: No Limitations General appearance: alert, in no apparent distress - Head Head exam: Present: atraumatic, normocephalic, normal inspection - Eye Eye exam: Present: normal appearance, PERRL - ENT ENT exam: Present: normal exam, normal orophraynx, mucous membranes moist - Neck Neck exam: Present: normal inspection, full ROM. Absent: tenderness, meningismus, lymphadenopathy, thyromegaly - Respiratory Respiratory exam: Present: wheezes, rhonchi. Absent: respiratory distress, rales, stridor, chest wall tenderness, accessory muscle use, decreased breath sounds, prolonged expiratory - Cardiovascular Cardiovascular Exam: Present: regular rate, normal rhythm, normal heart sounds - GI/Abdominal GI/Abdominal exam: Present: soft, normal bowel sounds. Absent: distended, tenderness, guarding, rebound, rigid, organomegaly, mass, bruit, pulsatile mass, hernia - Extremities Exam Extremities exam: Present: normal inspection, full ROM, normal capillary refill. Absent: tenderness, pedal edema, calf tenderness - Back Exam Back exam: Present: normal inspection, full ROM. Absent: CVA tenderness (R), CVA tenderness (L) - Neurological Exam Neurological exam: Present: alert, oriented X3, CN II-XII intact, normal gait, reflexes normal - Psychiatric Psychiatric exam: Present: normal mood - Skin Skin exam: Present: warm, intact, normal color ED Course Vital Signs 03/20/19 03/20/19 19:56 21:10 Temperature 98.8 F Pulse Rate 92 H Pulse Rate [ 88 Anterior] Respiratory 18 Rate Respiratory 20 Rate [Anterior] Blood Pressure 149/81 O2 Sat by Pulse 98 Oximetry ED Medical Decision Making - Lab Data Result diagrams: 03/20/19 20:01 03/20/19 20:01 - Radiology Data Radiology results: report reviewed Chest x-ray is negative for acute finding. - Medical Decision Making Patient is 33 years old female, morbidly obese with history of CHF, COPD and diabetes. Patient presented to the ER complaining of difficulty in breathing and cough, productive with greenish sputum for the last 3 days. Patient denied any fever or chills. Patient also denied any nausea or vomiting. Patient received albuterol 10 mg Atrovent 1 mg, Solu-Medrol 125 mg. Patient stated that she is feeling much better. Patient given a prescription for Levaquin, Medrol pack and albuterol inhaler. Patient advised to follow-up with her primary care physician in the next 2-3 days and to attend to the ER if symptoms are not improved. Critical care attestation.: If time is entered above; I have spent that time in minutes in the direct care of this critically ill patient, excluding procedure time. ED Disposition Clinical Impression: Asthma exacerbation, Acute bronchitis Disposition: TO HOME OR SELFCARE Is pt being admited?: No Condition: Stable Instructions: Acute Bronchitis (ED), Asthma (ED) Referrals: [facility] [Provider Group] - 3-5 Days
[2019-03-20 22:57] LABS: Anisocytosis 1+; Basophils % (Manual) 0 % (0.0-1.8); Eosinophils % (Manual) 0 % (0.0-4.3); Hypochromasia 1+; Total Cells Counted 100
[2019-03-20 22:58] LABS: Platelet Estimate Consistent w Auto; Poikilocytosis 1+
[2019-03-20] MEDS ORDERED: LEVAQUIN PO ONE (23:44)
[2019-03-21 01:13] LABS: Basophils # (Auto) 0.1 K/mm3 (0.0-0.1); Eosinophils % (Auto) 0.3 % (0.0-4.3); Monocytes # (Auto) 0.9 K/mm3 (0.0-0.8); Monocytes % (Auto) 5.3 % (0.0-7.3)
[2019-03-21 01:15] LABS: Hemolysis Index 8
[2019-03-21 02:29] VITALS: BP 139/78
== END 2019-03-21 01:00 | disposition home or self-care (01) ==
LOC: ED 19:40
DX: J45.901 Unspecified asthma with (acute) exacerbation (principal); J20.9 Acute bronchitis, unspecified; J44.9 Chronic obstructive pulmonary disease, unspecified; E11.9 Type 2 diabetes mellitus without complications; I11.0 Hypertensive heart disease with heart failure; I50.9 Heart failure, unspecified; K21.9 Gastro-esophageal reflux disease without esophagitis; G47.30 Sleep apnea, unspecified; Z95.0 Presence of cardiac pacemaker; Z90.49 Acquired absence of other specified parts of digestive tract; Z98.51 Tubal ligation status; Z79.899 Other long term (current) drug therapy
CPT/HCPCS: 36415; 71046; 80048; 82140; 82550; 82553; 83880; 84484; 85007; 85025; 94640; 96372; 99284; J2930; 94644

== ENCOUNTER 2019-07-07 21:43 | Emergency (ER) | payer MEDICAID ==
[2019-07-07 22:06] VITALS: BP 144/92
--- NOTE | 2019-07-07 22:08 | Event Note ---
ED Screening Note Date of service: 07/07/19 Time: 22:06 ED Screening Note: This is a 33 y.o. F. that presents to the ER with swelling and pain 1st medial nail fold x 2-3 days. This initial assessment/diagnostic orders/clinical plan/treatment(s) is/are subject to change based on patients health status, clinical progression and re- assessment by fellow clinical providers in the ED. Further treatment and workup at subsequent clinical providers discretion. Patient/guardian urged not to elope from the ED as their condition may be serious if not clinically assessed and managed. Initial orders include:
--- NOTE | 2019-07-07 22:42 | Emergency Department Report ---
- General Chief complaint: Extremity Injury, Upper Stated complaint: BUMP ON LEFT HAND Time Seen by Provider: 07/07/19 22:05 Source: patient Mode of arrival: Ambulatory Limitations: No Limitations - History of Present Illness Initial comments: Patient is a 33-year-old female presents emergency room with complaints of a nodule to the left thumb that began 2 weeks ago. She states that she also has bumps inside the left hand. She states that the nodules are painful. She denies ever having in the past. She denies any fever, drainage, any other symptoms. She states she has a past medical history of CHF and diabetes. She denies any allergies medications. - Related Data Home Medications Medication Instructions Recorded Confirmed Last Taken Digoxin [Lanoxin] 0.25 mg PO DAILY 03/21/18 03/21/18 Unknown Furosemide [Lasix TAB] 40 mg PO QDAY 03/21/18 03/21/18 Unknown Metformin HCl [Metformin HCl ER] 1,000 mg PO QDAY 03/21/18 03/21/18 Unknown carvediloL [Coreg] 6.25 mg PO BID 03/21/18 03/21/18 Unknown Previous Rx's Medication Instructions Recorded Last Taken Type ALBUTEROL Inhaler (OR & NICU) 2 puff IH QID PRN #1 inhalation 03/20/19 Unknown Rx [ProAir HFA Inhaler] Prednisone [predniSONE 10 mg 10 mg PO .TAPER #1 tab.ds.pk 03/20/19 Unknown Rx (6-Day Pack, 21 Tabs)] guaiFENesin [Robitussin] 5 ml PO TID PRN #100 ml 03/20/19 Unknown Rx levoFLOXacin [Levaquin TAB] 500 mg PO QDAY #7 tablet 03/20/19 Unknown Rx Naproxen [EC-Naproxen] 500 mg PO BID PRN #14 tablet.dr 07/07/19 Unknown Rx Allergies Allergy/AdvReac Type Severity Reaction Status Date / Time No Known Allergies Allergy Verified 04/07/16 16:41 Abscess Boil HPI - HPI Chief Complaint: Extremity Injury, Upper Stated Complaint: BUMP ON LEFT HAND Time Seen by Provider: 07/07/19 22:05 Home Medications: Home Medications Medication Instructions Recorded Confirmed Last Taken Digoxin [Lanoxin] 0.25 mg PO DAILY 03/21/18 03/21/18 Unknown Furosemide [Lasix TAB] 40 mg PO QDAY 03/21/18 03/21/18 Unknown Metformin HCl [Metformin HCl ER] 1,000 mg PO QDAY 03/21/18 03/21/18 Unknown carvediloL [Coreg] 6.25 mg PO BID 03/21/18 03/21/18 Unknown Previous Rx's Medication Instructions Recorded Last Taken Type ALBUTEROL Inhaler (OR & NICU) 2 puff IH QID PRN #1 inhalation 03/20/19 Unknown Rx [ProAir HFA Inhaler] Prednisone [predniSONE 10 mg 10 mg PO .TAPER #1 tab.ds.pk 03/20/19 Unknown Rx (6-Day Pack, 21 Tabs)] guaiFENesin [Robitussin] 5 ml PO TID PRN #100 ml 03/20/19 Unknown Rx levoFLOXacin [Levaquin TAB] 500 mg PO QDAY #7 tablet 03/20/19 Unknown Rx Naproxen [EC-Naproxen] 500 mg PO BID PRN #14 tablet. 07/07/19 Unknown Rx Allergies/Adverse Reactions: Allergies Allergy/AdvReac Type Severity Reaction Status Date / Time No Known Allergies Allergy Verified 04/07/16 16:41 ED Review of Systems ROS: Stated complaint: BUMP ON LEFT HAND Other details as noted in HPI Comment: All other systems reviewed and negative ED Past Medical Hx - Past Medical History Previous Medical History?: Yes Hx Hypertension: Yes Hx Congestive Heart Failure: Yes Hx GERD: Yes Hx Asthma: Yes Additional medical history: sleep apnea - Surgical History Past Surgical History?: Yes Hx Pacemaker: Yes (REPLACED 09/30/16) Hx Internal Defibrillator: Yes (replaced 09/30/2016 serial #[id number] model #[id number] [employer] [phone]) Hx Cholecystectomy: Yes Additional Surgical History: DC section. Tubal ligation. Medtronic replaced 09/30/[address] Victor Hugo Estrada MD [phone], serial #[id number] model #[id number], [employer] [phone] - Social History Smoking Status: Never Smoker Substance Use Type: Alcohol - Medications Home Medications: Home Medications Medication Instructions Recorded Confirmed Last Taken Type Digoxin [Lanoxin] 0.25 mg PO DAILY 03/21/18 03/21/18 Unknown History Furosemide [Lasix TAB] 40 mg PO QDAY 03/21/18 03/21/18 Unknown History Metformin HCl [Metformin HCl ER] 1,000 mg PO QDAY 03/21/18 03/21/18 Unknown History carvediloL [Coreg] 6.25 mg PO BID 03/21/18 03/21/18 Unknown History ALBUTEROL Inhaler (OR & NICU) 2 puff IH QID PRN #1 inhalation 03/20/19 Unknown Rx [ProAir HFA Inhaler] Prednisone [predniSONE 10 mg 10 mg PO .TAPER #1 tab.ds.pk 03/20/19 Unknown Rx (6-Day Pack, 21 Tabs)] guaiFENesin [Robitussin] 5 ml PO TID PRN #100 ml 03/20/19 Unknown Rx levoFLOXacin [Levaquin TAB] 500 mg PO QDAY #7 tablet 03/20/19 Unknown Rx Naproxen [EC-Naproxen] 500 mg PO BID PRN #14 tablet.dr 07/07/19 Unknown Rx ED Physical Exam - General Limitations: No Limitations General appearance: alert, in no apparent distress - Head Head exam: Present: atraumatic, normocephalic - Eye Eye exam: Present: normal appearance - ENT ENT exam: Present: mucous membranes moist - Neurological Exam Neurological exam: Present: alert, oriented X3 - Psychiatric Psychiatric exam: Present: normal affect, normal mood - Skin Skin exam: Present: warm, dry, other (1 cm nodule present to the lateral surface of the left thumb, no fluctuance, no fluid collection, small callulus like bumps present in the palmar surface of the left hand, there is no increased warmth, no edema, no erythema, pt has FROM of the left hand and fingers, neurovascularly intact) ED Course Vital Signs 07/07/19 07/07/19 21:50 22:06 Temperature 99.0 F 99 F Pulse Rate 94 H 95 H Respiratory 18 18 Rate Blood Pressure 144/92 144/92 O2 Sat by Pulse 99 99 Oximetry ED Medical Decision Making - Medical Decision Making Patient is a 33-year-old female presents emergency room with complaints of a n odule to the left thumb that began 2 weeks ago. She states that she also has bumps inside the left hand. She states that the nodules are painful. She denies ever having in the past. She denies any fever, drainage, any other symptoms. She states she has a past medical history of CHF and diabetes. She denies any allergies medications. VSS. on exam: 1 cm nodule present to the lateral surface of the left thumb, no fluctuance, no fluid collection, small callulus like bumps present in the palmar surface of the left hand, there is no increased warmth, no edema, no erythema, pt has FROM of the left hand and fingers, neurovascularly intact. No signs of abscess or infection. Advised patient to follow up with a tubing machine tender. Patient given prescription for naproxen to take as needed for discomfort. advised pt to please take medication as prescribed as needed. Follow-up with a tubing machine tender in the next 2-3 days. Return to the emergency room for any new or worsening symptoms. Critical care attestation.: If time is entered above; I have spent that time in minutes in the direct care of this critically ill patient, excluding procedure time. ED Disposition Clinical Impression: Nodule of skin of left thumb, Callus Disposition: TO HOME OR SELFCARE Is pt being admited?: No Does the pt Need Aspirin: No Condition: Stable Additional Instructions: please take medication as prescribed as needed. Follow-up with a tubing machine tender in the next 2-3 days. Return to the emergency room for any new or worsening symptoms. Dr. Theodore Hamilton [address] [place] [address] (tubing machine tender) Prescriptions: Naproxen [EC-Naproxen] 500 mg PO BID PRN #14 tablet.dr GREEN Reason: pain Referrals: CRISTINA SMITH MD [Staff Physician] - 2-3 Days WALDO LEE MD [Staff Physician] - 2-3 Days Forms: Work/School Release Form(ED) Time of Disposition: 22:40 Print Language: YORUBA
== END 2019-07-07 23:19 | disposition home or self-care (01) ==
LOC: ED 21:43
DX: L84 Corns and callosities (principal); I10 Essential (primary) hypertension; I11.0 Hypertensive heart disease with heart failure; I50.9 Heart failure, unspecified; K21.9 Gastro-esophageal reflux disease without esophagitis; J45.909 Unspecified asthma, uncomplicated; Z98.51 Tubal ligation status; Z98.890 Other specified postprocedural states; Z79.899 Other long term (current) drug therapy
CPT/HCPCS: 99282

== ENCOUNTER 2019-07-30 09:33 | Emergency (ER) | payer MEDICAID ==
[2019-07-30 12:36] VITALS: BP 126/75
--- NOTE | 2019-07-30 13:06 | Emergency Department Report ---
ED General Adult HPI - General Chief complaint: Extremity Injury, Lower Stated complaint: LFT HEEL SWELLING/PAIN Time Seen by Provider: 07/30/19 12:29 Source: patient Mode of arrival: Ambulatory Limitations: No Limitations - History of Present Illness Initial comments: The patient presents to the ED with a complaint of left heal pain x 1 week. Patient denies injury or new activity. 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 Patient denies the use of any new shoes or the use of heels. Patient has no other complaints -: Gradual, week(s) (1) Location: lower extremity Severity scale (0 -10): 4 Quality: stabbing, aching Consistency: constant Improves with: rest Worsens with: movement Associated Symptoms: denies other symptoms Treatments Prior to Arrival: none - Related Data Home Medications Medication Instructions Recorded Confirmed Last Taken Digoxin [Lanoxin] 0.25 mg PO DAILY 03/21/18 03/21/18 Unknown Furosemide [Lasix TAB] 40 mg PO QDAY 03/21/18 03/21/18 Unknown Metformin HCl [Metformin HCl ER] 1,000 mg PO QDAY 03/21/18 03/21/18 Unknown carvediloL [Coreg] 6.25 mg PO BID 03/21/18 03/21/18 Unknown Previous Rx's Medication Instructions Recorded Last Taken Type Albuterol INH(or & Nicu Only) 2 puff IH QID PRN #1 inhalation 03/20/19 Unknown Rx [ProAir HFA Inhaler] Prednisone [predniSONE 10 mg 10 mg PO .TAPER #1 tab.bill 03/20/19 Unknown Rx (6-Day Pack, 21 Tabs)] guaiFENesin [Robitussin] 5 ml PO TID PRN #100 ml 03/20/19 Unknown Rx levoFLOXacin [Levaquin TAB] 500 mg PO QDAY #7 tablet 03/20/19 Unknown Rx Naproxen [EC-Naproxen] 500 mg PO BID PRN #14 tablet. 07/07/19 Unknown Rx Naproxen [Naprosyn] 500 mg PO BID PRN #30 tablet 07/30/19 Unknown Rx Prednisone [predniSONE 10 mg 10 mg PO .TAPER #1 tab.bill 07/30/19 Unknown Rx (6-Day Pack, 21 Tabs)] Allergies Allergy/AdvReac Type Severity Reaction Status Date / Time No Known Allergies Allergy Verified 04/07/16 16:41 ED Review of Systems ROS: Stated complaint: LFT HEEL SWELLING/PAIN Other details as noted in HPI Comment: All other systems reviewed and negative Constitutional: denies: chills, fever Eyes: denies: eye pain, eye discharge, vision change ENT: denies: ear pain, throat pain Respiratory: denies: cough, shortness of breath, wheezing Cardiovascular: denies: chest pain, palpitations Endocrine: no symptoms reported Gastrointestinal: denies: abdominal pain, nausea, diarrhea Genitourinary: denies: urgency, dysuria, discharge Musculoskeletal: denies: back pain, joint swelling, arthralgia Skin: denies: rash, lesions Neurological: denies: headache, weakness, paresthesias Psychiatric: denies: anxiety, depression Hematological/Lymphatic: denies: easy bleeding, easy bruising ED Past Medical Hx - Past Medical History Hx Hypertension: Yes Hx Congestive Heart Failure: Yes Hx GERD: Yes Hx Asthma: Yes Additional medical history: sleep apnea - Surgical History Hx Pacemaker: Yes (REPLACED 09/30/16) Hx Internal Defibrillator: Yes (replaced 09/30/2016 serial #[id number] model #[id number] [employer] [phone]) Hx Cholecystectomy: Yes Additional Surgical History: DC section. Tubal ligation. Medtronic replaced 09/30/[address] Victor Hugo Estrada MD [phone], serial #[id number] model #[id number], [employer] [phone] - Social History Smoking Status: Never Smoker Substance Use Type: None - Medications Home Medications: Home Medications Medication Instructions Recorded Confirmed Last Taken Type Digoxin [Lanoxin] 0.25 mg PO DAILY 03/21/18 03/21/18 Unknown History Furosemide [Lasix TAB] 40 mg PO QDAY 03/21/18 03/21/18 Unknown History Metformin HCl [Metformin HCl ER] 1,000 mg PO QDAY 03/21/18 03/21/18 Unknown History carvediloL [Coreg] 6.25 mg PO BID 03/21/18 03/21/18 Unknown History Albuterol INH(or & Nicu Only) 2 puff IH QID PRN #1 inhalation 03/20/19 Unknown Rx [ProAir HFA Inhaler] Prednisone [predniSONE 10 mg 10 mg PO .TAPER #1 tab.ds.pk 03/20/19 Unknown Rx (6-Day Pack, 21 Tabs)] guaiFENesin [Robitussin] 5 ml PO TID PRN #100 ml 03/20/19 Unknown Rx levoFLOXacin [Levaquin TAB] 500 mg PO QDAY #7 tablet 03/20/19 Unknown Rx Naproxen [EC-Naproxen] 500 mg PO BID PRN #14 tablet. 07/07/19 Unknown Rx Naproxen [Naprosyn] 500 mg PO BID PRN #30 tablet 07/30/19 Unknown Rx Prednisone [predniSONE 10 mg 10 mg PO .TAPER #1 tab.ds.pk 07/30/19 Unknown Rx (6-Day Pack, 21 Tabs)] ED Physical Exam - General Limitations: No Limitations General appearance: alert, in no apparent distress - Head Head exam: Present: atraumatic, normocephalic - Eye Eye exam: Present: normal appearance - ENT ENT exam: Present: mucous membranes moist - Neck Neck exam: Present: normal inspection - Extremities Exam Extremities exam: Present: other (tendon palpation of the plantar fascia posterior aspect left foot) - Back Exam Back exam: Present: normal inspection - Neurological Exam Neurological exam: Present: alert, oriented X3, CN II-XII intact. Absent: motor sensory deficit - Psychiatric Psychiatric exam: Present: normal affect, normal mood - Skin Skin exam: Present: warm, dry, intact, normal color. Absent: rash ED Course Vital Signs 07/30/19 07/30/19 09:53 12:35 Temperature 98.2 F 97.9 F Pulse Rate 84 70 Respiratory 16 20 Rate Blood Pressure 145/86 Blood Pressure 126/75 [Right] O2 Sat by Pulse 99 100 Oximetry ED Medical Decision Making - Medical Decision Making Discussed plan of care with patient Critical care attestation.: If time is entered above; I have spent that time in minutes in the direct care of this critically ill patient, excluding procedure time. ED Disposition Clinical Impression: Foot pain, left, Plantar fasciitis of left foot Disposition: - TO HOME OR SELFCARE Is pt being admited?: No Does the pt Need Aspirin: No Condition: Stable Additional Instructions: Return if worse Prescriptions: Naproxen [Naprosyn] 500 mg PO BID PRN #30 tablet PRN Reason: pain Prednisone [predniSONE 10 mg (6-Day Pack, 21 Tabs)] 10 mg PO .TAPER #1 tab.ds.pk Referrals: PRIMARY CARE,MD [Primary Care Provider] - 3-5 Days MARC CHRISTIE DPM [Staff Physician] - 3-5 Days Time of Disposition: 13:06
[2019-07-30] MEDS ORDERED: predniSONE 20 MG TAB PO ONE (13:08)
== END 2019-07-30 13:15 | disposition home or self-care (01) ==
LOC: ED 09:33
DX: M72.2 Plantar fascial fibromatosis (principal); M79.672 Pain in left foot; I11.0 Hypertensive heart disease with heart failure; I50.9 Heart failure, unspecified; K21.9 Gastro-esophageal reflux disease without esophagitis; J45.909 Unspecified asthma, uncomplicated
CPT/HCPCS: 99282; J7512

== ENCOUNTER 2019-10-04 08:49 | Emergency (ER) | payer MEDICAID ==
[2019-10-04 09:24] LABS: Basophils # (Auto) 0.1 K/mm3 (0.0-0.1); Basophils % (Auto) 0.8 % (0.0-1.8); Eosinophils # (Auto) 0.3 K/mm3 (0.0-0.4); Eosinophils % (Auto) 2.5 % (0.0-4.3); Hemoglobin 12.3 gm/dl (10.1-14.3); Lymphocytes # (Auto) 3.1 K/mm3 (1.2-5.4); Lymphocytes % (Auto) 25.1 % (13.4-35.0); Monocytes # (Auto) 0.5 K/mm3 (0.0-0.8); Monocytes % (Auto) 4.2 % (0.0-7.3)
[2019-10-04 09:37] LABS: Bacteria,Urine 2+ /HPF (Negative); Bilirubin,Urine NEG (Negative); Blood,Urine SM (Negative); Color,Urine Yellow (Yellow); Mucus,Urine FEW /HPF; Protein,Urine <15 mg/dL mg/dL (Negative); Urobilinogen,Urine < 2.0 mg/dL (<2.0)
[2019-10-04 09:47] LABS: BUN/Creatinine Ratio 13; Blood Urea Nitrogen 10 mg/dL (7-17); Calcium 8.8 mg/dL (8.4-10.2); Hemolysis Index 0
[2019-10-04 09:49] LABS: Hematocrit 38.3 % (30.3-42.9); Mean Corpuscular HGB Conc 32 % (30-34); Mean Corpuscular Volume 72 fl (79-97); Platelet Count 405 K/mm3 (140-440); Red Blood Count 5.31 M/mm3 (3.65-5.03); Red Cell Distribution Width 15.5 % (13.2-15.2)
[2019-10-04] MEDS ORDERED: INSULIN REGULAR, HUMAN 100 UNITS/1 ML IV ONE ×2 (10:29→12:54)
[2019-10-04] MEDS ORDERED: ALBUTEROL 2.5 MG/3 ML NEBU IH ONE (10:30)
[2019-10-04] MEDS ORDERED: SODIUM CHLORIDE 0.9% 500 ML 500 ML IV ONE ×2 (10:30→12:54)
[2019-10-04] MEDS ORDERED: IPRATROPIUM 0.02% NEBU 2.5 ML IH ONE (10:30)
[2019-10-04] MEDS ORDERED: NITROFURANTOIN MONOHYD/M-CRYST 100 MG CAP PO ONE (10:32)
--- NOTE | 2019-10-04 10:44 | Emergency Department Report ---
ED General Adult HPI - General Chief complaint: Urogenital-Female Stated complaint: DRY MOUTH/YEAST INFECTION/DIABETIC Time Seen by Provider: 10/04/19 10:20 Source: patient Mode of arrival: Ambulatory Limitations: No Limitations - History of Present Illness Initial comments: 34-year-old female the past medical history of obesity, tubal ligation, hyperte nsion, asthma, diabetes, peripartum cardiomyopathy, CHF, AICD presents to the hospital with complaints generalized weakness and frequent urination. Patient is on metformin twice daily and Humalog insulin and Lantus at home. Patient's insulin is dose sliding scale. Patient states the digital numbers on her Accu- [employer] machine are fading and she is unsure if it is malfunctioning or needs a battery replacement. Patient has not attempted to change the battery. Because she cannot check her sugar accurately and read the numbers on the machine she stopped taking her insulin for the past 4 days. Patient complains of a bad vaginal yeast infection and some increased urinary frequency. - Related Data Home Medications Medication Instructions Recorded Confirmed Last Taken Digoxin [Lanoxin] 0.25 mg PO DAILY 03/21/18 03/21/18 Unknown Furosemide [Lasix TAB] 40 mg PO QDAY 03/21/18 03/21/18 Unknown Metformin HCl [Metformin HCl ER] 1,000 mg PO QDAY 03/21/18 03/21/18 Unknown carvediloL [Coreg] 6.25 mg PO BID 03/21/18 03/21/18 Unknown Previous Rx's Medication Instructions Recorded Last Taken Type Albuterol INH(or & Nicu Only) 2 puff IH QID PRN #1 inhalation 03/20/19 Unknown Rx [ProAir HFA Inhaler] Prednisone [predniSONE 10 mg 10 mg PO .TAPER #1 tab.ds.pk 03/20/19 Unknown Rx (6-Day Pack, 21 Tabs)] guaiFENesin [Robitussin] 5 ml PO TID PRN #100 ml 03/20/19 Unknown Rx levoFLOXacin [Levaquin TAB] 500 mg PO QDAY #7 tablet 03/20/19 Unknown Rx Naproxen [EC-Naproxen] 500 mg PO BID PRN #14 tablet.dr 07/07/19 Unknown Rx Naproxen [Naprosyn] 500 mg PO BID PRN #30 tablet 07/30/19 Unknown Rx Prednisone [predniSONE 10 mg 10 mg PO .TAPER #1 tab.ds.pk 07/30/19 Unknown Rx (6-Day Pack, 21 Tabs)] Fluconazole [Diflucan TAB] 150 mg PO ONCE #1 tablet 10/04/19 Unknown Rx Nitrofurantoin [place]/M-Cryst 100 mg PO Q12HR #12 capsule 10/04/19 Unknown Rx [Macrobid CAP] Allergies Allergy/AdvReac Type Severity Reaction Status Date / Time No Known Allergies Allergy Verified 04/07/16 16:41 ED Review of Systems ROS: Stated complaint: DRY MOUTH/YEAST INFECTION/DIABETIC Other details as noted in HPI Comment: All other systems reviewed and negative ED Past Medical Hx - Past Medical History Previous Medical History?: Yes Hx Hypertension: Yes Hx Congestive Heart Failure: Yes Hx Diabetes: Yes Hx GERD: Yes Hx Asthma: Yes Additional medical history: sleep apnea - Surgical History Past Surgical History?: Yes Hx Pacemaker: Yes (REPLACED 09/30/16) Hx Internal Defibrillator: Yes (replaced 09/30/2016 serial #[id number] model #[id number] [employer] [phone]) Hx Cholecystectomy: Yes Additional Surgical History: DC section. Tubal ligation. Medtronic replaced 09/30/[address] Victor Hugo Estrada MD [phone], serial #[id number] model #[id number], [employer] [phone] - Social History Smoking Status: Never Smoker Substance Use Type: None - Medications Home Medications: Home Medications Medication Instructions Recorded Confirmed Last Taken Type Digoxin [Lanoxin] 0.25 mg PO DAILY 03/21/18 03/21/18 Unknown History Furosemide [Lasix TAB] 40 mg PO QDAY 03/21/18 03/21/18 Unknown History Metformin HCl [Metformin HCl ER] 1,000 mg PO QDAY 03/21/18 03/21/18 Unknown History carvediloL [Coreg] 6.25 mg PO BID 03/21/18 03/21/18 Unknown History Albuterol INH(or & Nicu Only) 2 puff IH QID PRN #1 inhalation 03/20/19 Unknown Rx [ProAir HFA Inhaler] Prednisone [predniSONE 10 mg 10 mg PO .TAPER #1 tab.ds.pk 03/20/19 Unknown Rx (6-Day Pack, 21 Tabs)] guaiFENesin [Robitussin] 5 ml PO TID PRN #100 ml 03/20/19 Unknown Rx levoFLOXacin [Levaquin TAB] 500 mg PO QDAY #7 tablet 03/20/19 Unknown Rx Naproxen [EC-Naproxen] 500 mg PO BID PRN #14 tablet.dr 07/07/19 Unknown Rx Naproxen [Naprosyn] 500 mg PO BID PRN #30 tablet 07/30/19 Unknown Rx Prednisone [predniSONE 10 mg 10 mg PO .TAPER #1 tab.ds.pk 07/30/19 Unknown Rx (6-Day Pack, 21 Tabs)] Fluconazole [Diflucan TAB] 150 mg PO ONCE #1 tablet 10/04/19 Unknown Rx Nitrofurantoin [place]/M-Cryst 100 mg PO Q12HR #12 capsule 10/04/19 Unknown Rx [Macrobid CAP] ED Physical Exam - General Limitations: No Limitations - Other Other exam information: General: No acute distress Head: Atraumatic Eyes: normal appearance ENT: Moist mucous membranes Neck: Normal appearance, no midline tenderness Chest: Bilateral wheezing, no tachypnea or accessory muscle use CV: Mild tachycardia regular rhythm Abdomen: Soft, normal bowel sounds, nontender, nondistended, no rebound or guarding Back: Normal inspection Extremity: Normal inspection, full range of motion Neuro: Alert O x 3, no facial asymmetry, speech clear, no gross motor sensory deficit Psych: Appropriate behavior Skin: No rash ED Course Vital Signs 10/04/19 10/04/19 10/04/19 09:02 10:44 11:40 Temperature 97.6 F Pulse Rate 119 H 106 H Pulse Rate [ 93 H Bilateral] Respiratory 20 19 Rate Respiratory 16 Rate [Bilateral ] Blood Pressure 138/77 Blood Pressure 126/77 [Left] O2 Sat by Pulse 99 100 Oximetry 10/04/19 12:42 Temperature Pulse Rate 98 H Pulse Rate [ Bilateral] Respiratory 25 H Rate Respiratory Rate [Bilateral ] Blood Pressure Blood Pressure 137/71 [Left] O2 Sat by Pulse 98 Oximetry ED Medical Decision Making - Lab Data Result diagrams: 10/04/19 09:12 10/04/19 09:09 Lab Results 10/04/19 10/04/19 10/04/19 Range/Units 09:01 09:09 09:09 WBC (4.5-11.0) K/mm3 RBC (3.65-5.03) M/mm3 Hgb (10.1-14.3) gm/dl Hct (30.3-42.9) % MCV (79-97) fl MCH (28-32) pg MCHC (30-34) % RDW (13.2-15.2) % Plt Count (140-440) K/mm3 Lymph % (Auto) (13.4-35.0) % [place] % (Auto) (0.0-7.3) % Eos % (Auto) (0.0-4.3) % Baso % (Auto) (0.0-1.8) % Lymph # (1.2-5.4) K/mm3 [place] # (0.0-0.8) K/mm3 Eos # (0.0-0.4) K/mm3 Baso # (0.0-0.1) K/mm3 Seg Neutrophils % (40.0-70.0) % Seg Neutrophils # (1.8-7.7) K/mm3 VBG pH 7.407 (7.320-7.420) Sodium 132 L (137-145) mmol/L Potassium 3.8 (3.6-5.0) mmol/L Chloride 95.1 L (98-107) mmol/L Carbon Dioxide 21 L (22-30) mmol/L Anion Gap 20 mmol/L BUN 10 (7-17) mg/dL Creatinine 0.8 (0.7-1.2) mg/dL Estimated GFR > 60 ml/min BUN/Creatinine Ratio 13 % Glucose 506 H* (65-100) mg/dL POC Glucose (70-105) Calcium 8.8 (8.4-10.2) mg/dL Urine Color Yellow (Yellow) Urine Turbidity Turbid (Clear) Urine pH 5.0 (5.0-7.0) Ur Specific [place] 1.037 H (1.003-1.030) Urine Protein <15 mg/dl (Negative) mg/dL Urine Glucose (UA) >=500 (Negative) mg/dL Urine Ketones Neg (Negative) mg/dL Urine Blood Sm (Negative) Urine Nitrite Neg (Negative) Urine Bilirubin Neg (Negative) Urine Urobilinogen < 2.0 (<2.0) mg/dL Ur Leukocyte Esterase Lg (Negative) Urine WBC (Auto) 32.0 H (0.0-6.0) /HPF Urine RBC (Auto) 74.0 (0.0-6.0) /HPF U Epithel Cells (Auto) 24.0 H (0-13.0) /HPF Urine Bacteria (Auto) 2+ (Negative) /HPF Urine WBC Clumps 2+ /HPF Urine Mucus Few /HPF Urine Yeast (Budding) 3+ /HPF 10/04/19 10/04/19 10/04/19 Range/Units 09:12 09:17 10:55 WBC 12.4 H (4.5-11.0) K/mm3 RBC 5.31 H (3.65-5.03) M/mm3 Hgb 12.3 (10.1-14.3) gm/dl Hct 38.3 (30.3-42.9) % MCV 72 L (79-97) fl MCH 23 L (28-32) pg MCHC 32 (30-34) % RDW 15.5 H (13.2-15.2) % Plt Count 405 (140-440) K/mm3 Lymph % (Auto) 25.1 (13.4-35.0) % [place] % (Auto) 4.2 (0.0-7.3) % Eos % (Auto) 2.5 (0.0-4.3) % Baso % (Auto) 0.8 (0.0-1.8) % Lymph # 3.1 (1.2-5.4) K/mm3 [place] # 0.5 (0.0-0.8) K/mm3 Eos # 0.3 (0.0-0.4) K/mm3 Baso # 0.1 (0.0-0.1) K/mm3 Seg Neutrophils % 67.4 (40.0-70.0) % Seg Neutrophils # 8.4 H (1.8-7.7) K/mm3 VBG pH (7.320-7.420) Sodium (137-145) mmol/L Potassium (3.6-5.0) mmol/L Chloride (98-107) mmol/L Carbon Dioxide (22-30) mmol/L Anion Gap mmol/L BUN (7-17) mg/dL Creatinine (0.7-1.2) mg/dL Estimated GFR ml/min BUN/Creatinine Ratio % Glucose (65-100) mg/dL POC Glucose 452 H 412 H (70-105) Calcium (8.4-10.2) mg/dL Urine Color (Yellow) Urine Turbidity (Clear) Urine pH (5.0-7.0) Ur Specific [place] (1.003-1.030) Urine Protein (Negative) mg/dL Urine Glucose (UA) (Negative) mg/dL Urine Ketones (Negative) mg/dL Urine Blood (Negative) Urine Nitrite (Negative) Urine Bilirubin (Negative) Urine Urobilinogen (<2.0) mg/dL Ur Leukocyte Esterase (Negative) Urine WBC (Auto) (0.0-6.0) /HPF Urine RBC (Auto) (0.0-6.0) /HPF U Epithel Cells (Auto) (0-13.0) /HPF Urine Bacteria (Auto) (Negative) /HPF Urine WBC Clumps /HPF Urine Mucus /HPF Urine Yeast (Budding) /HPF 10/04/19 10/04/19 10/04/19 Range/Units 12:14 13:05 14:37 WBC (4.5-11.0) K/mm3 RBC (3.65-5.03) M/mm3 Hgb (10.1-14.3) gm/dl Hct (30.3-42.9) % MCV (79-97) fl MCH (28-32) pg MCHC (30-34) % RDW (13.2-15.2) % Plt Count (140-440) K/mm3 Lymph % (Auto) (13.4-35.0) % [place] % (Auto) (0.0-7.3) % Eos % (Auto) (0.0-4.3) % Baso % (Auto) (0.0-1.8) % Lymph # (1.2-5.4) K/mm3 [place] # (0.0-0.8) K/mm3 Eos # (0.0-0.4) K/mm3 Baso # (0.0-0.1) K/mm3 Seg Neutrophils % (40.0-70.0) % Seg Neutrophils # (1.8-7.7) K/mm3 VBG pH (7.320-7.420) Sodium (137-145) mmol/L Potassium (3.6-5.0) mmol/L Chloride (98-107) mmol/L Carbon Dioxide (22-30) mmol/L Anion Gap mmol/L BUN (7-17) mg/dL Creatinine (0.7-1.2) mg/dL Estimated GFR ml/min BUN/Creatinine Ratio % Glucose (65-100) mg/dL POC Glucose 340 H 379 H 283 H (70-105) Calcium (8.4-10.2) mg/dL Urine Color (Yellow) Urine Turbidity (Clear) Urine pH (5.0-7.0) Ur Specific [place] (1.003-1.030) Urine Protein (Negative) mg/dL Urine Glucose (UA) (Negative) mg/dL Urine Ketones (Negative) mg/dL Urine Blood (Negative) Urine Nitrite (Negative) Urine Bilirubin (Negative) Urine Urobilinogen (<2.0) mg/dL Ur Leukocyte Esterase (Negative) Urine WBC (Auto) (0.0-6.0) /HPF Urine RBC (Auto) (0.0-6.0) /HPF U Epithel Cells (Auto) (0-13.0) /HPF Urine Bacteria (Auto) (Negative) /HPF Urine WBC Clumps /HPF Urine Mucus /HPF Urine Yeast (Budding) /HPF - Radiology Data Radiology results: report reviewed CHEST 1 VIEW INDICATION / CLINICAL INFORMATION: wheezing. COMPARISON: 03/20/2019 FINDINGS: SUPPORT DEVICES: AICD unchanged HEART / MEDIASTINUM: No significant abnormality. LUNGS / PLEURA: There are low lung volumes bilaterally. No pneumoth orax. No focal infiltrate is seen. ADDITIONAL FINDINGS: No significant additional findings. IMPRESSION: 1. No acute findings. - Medical Decision Making Patient has hyperglycemia without signs of DKA. Patient treated with IV insulin and a total of 1 L normal saline. Patient developed muscle cramps after second bolus of insulin therefore p.o. potassium ordered. Patient has glucose reduction to the 200s prior to discharge. Patient is hyperglycemia secondary to medication noncompliance. Patient also has a UTI and complains of yeast vaginitis with positive yeast on UA. Patient provided Macrobid in the ED. Patient informed that her yeast vaginitis would not improve without glucose control. I will write a prescription for new glucometer, Macrobid, and Diflucan. Patient also received bronchodilators for wheezing without complaints of respiratory distress or signs of hypoxia. gluometer and testing strips were on provided on handwritten script - Differential Diagnosis DKA, hyperglycemia, UTI, vaginitis Critical Care Time: No Critical care attestation.: If time is entered above; I have spent that time in minutes in the direct care of this critically ill patient, excluding procedure time. ED Disposition Clinical Impression: Diabetes mellitus with hyperglycemia, Noncompliance with medication regimen, UTI (urinary tract infection), Yeast vaginitis, Mild asthma exacerbation Disposition: TO HOME OR SELFCARE Is pt being admited?: No Does the pt Need Aspirin: No Condition: Stable Instructions: Diabetes Mellitus Type 2 in Adults (ED), Urinary Tract Infection in Women (ED), Vulvovaginal Candidiasis (ED) Additional Instructions: Take the medication as prescribed. Follow-up with your doctor or doctor/clinic provided. Return if symptoms worsen as indicated by your discharge instructions. Prescriptions: Fluconazole [Diflucan TAB] 150 mg PO ONCE #1 tablet Nitrofurantoin [place]/M-Cryst [Macrobid CAP] 100 mg PO Q12HR #12 capsule Referrals: PRIMARY MD BRIDGER [Primary Care Provider] - 3-5 Days CHARITO ORR MD [Staff Physician] - 3-5 Days Time of Disposition: 14:54
--- NOTE | 2019-10-04 11:18 | XRay Report ---
CHEST 1 VIEW INDICATION / CLINICAL INFORMATION: wheezing. COMPARISON: 03/20/2019 FINDINGS: SUPPORT DEVICES: AICD unchanged HEART / MEDIASTINUM: No significant abnormality. LUNGS / PLEURA: There are low lung volumes bilaterally. No pneumothorax. No focal infiltrate is seen . ADDITIONAL FINDINGS: No significant additional findings. IMPRESSION: 1. No acute findings. Signer Name: Ty Lewis MD Signed: 10/04/2019 11:13 AM Workstation Name: [id number]
[2019-10-04] MEDS ORDERED: POTASSIUM CHLORIDE ER 20 MEQ TAB PO ONE (14:12)
[2019-10-04 14:44] VITALS: BP 143/75
== END 2019-10-04 15:13 | disposition home or self-care (01) ==
LOC: ED 08:49
DX: E11.65 Type 2 diabetes mellitus with hyperglycemia (principal); N39.0 Urinary tract infection, site not specified; J45.901 Unspecified asthma with (acute) exacerbation; N76.0 Acute vaginitis; B96.89 Other specified bacterial agents as the cause of diseases classified elsewhere; I11.0 Hypertensive heart disease with heart failure; I50.9 Heart failure, unspecified; E11.9 Type 2 diabetes mellitus without complications; K21.9 Gastro-esophageal reflux disease without esophagitis; J45.909 Unspecified asthma, uncomplicated; Z98.51 Tubal ligation status; Z90.49 Acquired absence of other specified parts of digestive tract; Z95.818 Presence of other cardiac implants and grafts
CPT/HCPCS: 36415; 71045; 80048; 81001; 82805; 82962; 85025; 87086; 94640; 96361; 96374; 96376; 99284; J7040; 94644; J1815

== ENCOUNTER 2019-10-30 07:59 | Emergency (ER) | payer MEDICAID ==
--- NOTE | 2019-10-30 09:13 | Emergency Department Report ---
ED Female HPI - General Chief complaint: Urogenital-Female Stated complaint: VAGINA ISSUE Time Seen by Provider: 10/30/19 08:41 Source: patient Mode of arrival: Ambulatory Limitations: No Limitations - History of Present Illness Initial comments: 34-year-old morbidly obese -[place] female diabetic presents emergency department complaining of vaginal discharge with irritation and clumpy MD Complaint: pelvic pain -: Gradual Location: labia, suprapubic Radiation: non-radiating Severity: mild Consistency: constant Improves with: none Worsens with: none Are you Now?: No Associated Symptoms: vaginal discharge (With vaginal irritation and clumpy white discharge). denies: abdominal pain, nausea/vomiting, loss of appetite, dysuria, hematuria - Related Data Home Medications Medication Instructions Recorded Confirmed Last Taken Digoxin [Lanoxin] 0.25 mg PO DAILY 03/21/18 03/21/18 Unknown Furosemide [Lasix TAB] 40 mg PO QDAY 03/21/18 03/21/18 Unknown Metformin HCl [Metformin HCl ER] 1,000 mg PO QDAY 03/21/18 03/21/18 Unknown carvediloL [Coreg] 6.25 mg PO BID 03/21/18 03/21/18 Unknown Previous Rx's Medication Instructions Recorded Last Taken Type Albuterol INH(or & Nicu Only) 2 puff IH QID PRN #1 inhalation 03/20/19 Unknown Rx [ProAir HFA Inhaler] Prednisone [predniSONE 10 mg 10 mg PO .TAPER #1 tab.ds.pk 03/20/19 Unknown Rx (6-Day Pack, 21 Tabs)] guaiFENesin [Robitussin] 5 ml PO TID PRN #100 ml 03/20/19 Unknown Rx levoFLOXacin [Levaquin TAB] 500 mg PO QDAY #7 tablet 03/20/19 Unknown Rx Naproxen [EC-Naproxen] 500 mg PO BID PRN #14 tablet.dr 07/07/19 Unknown Rx Naproxen [Naprosyn] 500 mg PO BID PRN #30 tablet 07/30/19 Unknown Rx Prednisone [predniSONE 10 mg 10 mg PO .TAPER #1 tab.ds.pk 07/30/19 Unknown Rx (6-Day Pack, 21 Tabs)] Nitrofurantoin Branch/M-Cryst 100 mg PO Q12HR #12 capsule 10/04/19 Unknown Rx [Macrobid CAP] Fluconazole [Diflucan TAB] 150 mg PO ONCE #2 tablet 10/30/19 Unknown Rx Insulin Aspart (Nf) [NovoLOG See Protocol SQ AC #1 pen 10/30/19 Unknown Rx Flexpen] Insulin Glargine [Lantus VIAL] 10 unit SUB-Q QHS #7 ml 10/30/19 Unknown Rx Allergies Allergy/AdvReac Type Severity Reaction Status Date / Time No Known Allergies Allergy Verified 04/07/16 16:41 ED Review of Systems ROS: Stated complaint: VAGINA ISSUE Other details as noted in HPI Comment: All other systems reviewed and negative ED Past Medical Hx - Past Medical History Previous Medical History?: Yes Hx Hypertension: Yes Hx Congestive Heart Failure: Yes Hx Diabetes: Yes Hx GERD: Yes Hx Asthma: Yes Additional medical history: sleep apnea - Surgical History Past Surgical History?: Yes Hx Pacemaker: Yes (REPLACED 09/30/16) Hx Internal Defibrillator: Yes (replaced 09/30/2016 serial #[id number] model #[id number] [employer] [phone]) Hx Cholecystectomy: Yes Additional Surgical History: DC section. Tubal ligation. Medtronic replaced 09/30/[address] Victor Hugo Estrada MD [phone], serial #[id number] model #[id number], [employer] [phone] - Social History Smoking Status: Never Smoker Substance Use Type: None - Medications Home Medications: Home Medications Medication Instructions Recorded Confirmed Last Taken Type Digoxin [Lanoxin] 0.25 mg PO DAILY 03/21/18 03/21/18 Unknown History Furosemide [Lasix TAB] 40 mg PO QDAY 03/21/18 03/21/18 Unknown History Metformin HCl [Metformin HCl ER] 1,000 mg PO QDAY 03/21/18 03/21/18 Unknown History carvediloL [Coreg] 6.25 mg PO BID 03/21/18 03/21/18 Unknown History Albuterol INH(or & Nicu Only) 2 puff IH QID PRN #1 inhalation 03/20/19 Unknown Rx [ProAir HFA Inhaler] Prednisone [predniSONE 10 mg 10 mg PO .TAPER #1 tab.ds.pk 03/20/19 Unknown Rx (6-Day Pack, 21 Tabs)] guaiFENesin [Robitussin] 5 ml PO TID PRN #100 ml 03/20/19 Unknown Rx levoFLOXacin [Levaquin TAB] 500 mg PO QDAY #7 tablet 03/20/19 Unknown Rx Naproxen [EC-Naproxen] 500 mg PO BID PRN #14 tablet.dr 07/07/19 Unknown Rx Naproxen [Naprosyn] 500 mg PO BID PRN #30 tablet 07/30/19 Unknown Rx Prednisone [predniSONE 10 mg 10 mg PO .TAPER #1 tab.ds.pk 07/30/19 Unknown Rx (6-Day Pack, 21 Tabs)] Nitrofurantoin Branch/M-Cryst 100 mg PO Q12HR #12 capsule 10/04/19 Unknown Rx [Macrobid CAP] Fluconazole [Diflucan TAB] 150 mg PO ONCE #2 tablet 10/30/19 Unknown Rx Insulin Aspart (Nf) [NovoLOG See Protocol SQ AC #1 pen 10/30/19 Unknown Rx Flexpen] Insulin Glargine [Lantus VIAL] 10 unit SUB-Q QHS #7 ml 10/30/19 Unknown Rx ED Physical Exam - General Limitations: No Limitations General appearance: alert, in no apparent distress - Head Head exam: Present: atraumatic, normocephalic - Eye Eye exam: Present: normal appearance, PERRL, EOMI Pupils: Present: normal accommodation - ENT ENT exam: Present: normal exam, normal orophraynx, mucous membranes moist, TM's normal bilaterally - Neck Neck exam: Present: normal inspection, full ROM - Respiratory Respiratory exam: Present: normal lung sounds bilaterally. Absent: respiratory distress, wheezes, rales, chest wall tenderness, accessory muscle use - Cardiovascular Cardiovascular Exam: Present: regular rate, normal rhythm. Absent: bradycardia, tachycardia, systolic murmur, diastolic murmur, rubs, gallop - GI/Abdominal GI/Abdominal exam: Present: soft, normal bowel sounds. Absent: tenderness, guarding, rebound, hyperactive bowel sounds, hypoactive bowel sounds, organomegaly, mass - Extremities Exam Extremities exam: Present: normal inspection, normal capillary refill - Back Exam Back exam: Present: normal inspection. Absent: CVA tenderness (R), CVA tenderness (L) - Neurological Exam Neurological exam: Present: alert, oriented X3, CN II-XII intact - Psychiatric Psychiatric exam: Present: normal affect, normal mood - Skin Skin exam: Present: warm, dry, intact, normal color. Absent: rash ED Course Vital Signs 10/30/19 08:18 Temperature 98.8 F Pulse Rate 90 Respiratory 16 Rate Blood Pressure 132/79 O2 Sat by Pulse 98 Oximetry Critical care attestation.: If time is entered above; I have spent that time in minutes in the direct care of this critically ill patient, excluding procedure time. ED Disposition Clinical Impression: Yeast vaginitis, Hyperglycemia due to type 2 diabetes mellitus Disposition: TO HOME OR SELFCARE Is pt being admited?: No Does the pt Need Aspirin: No Condition: Stable Instructions: Diabetes Mellitus Type 2 in Adults (ED) Additional Instructions: Please be sure to appropriately allocated medication so you do not run out as you have done the last 2 weeks. This will significantly increase your risk of any type of infection Prescriptions: Fluconazole [Diflucan TAB] 150 mg PO ONCE #2 tablet Insulin Glargine [Lantus VIAL] 10 unit SUB-Q QHS #7 ml Insulin Aspart (Nf) [NovoLOG Flexpen] See Protocol SQ AC #1 pen Referrals: [facility] [Provider Group] - 3-5 Days
== END 2019-10-30 09:33 | disposition home or self-care (01) ==
LOC: ED 07:59
DX: N76.0 Acute vaginitis (principal); B37.3 Candidiasis of vulva and vagina; E11.65 Type 2 diabetes mellitus with hyperglycemia; I11.0 Hypertensive heart disease with heart failure; I50.9 Heart failure, unspecified; K21.9 Gastro-esophageal reflux disease without esophagitis; G47.30 Sleep apnea, unspecified
CPT/HCPCS: 82962; 99282

== ENCOUNTER 2020-02-24 01:56 | Observation (INO) | payer MEDICAID ==
[2020-02-24] MEDS ORDERED: fentaNYL 100 MCG/2 ML INJ IV ONE (02:33)
[2020-02-24] MEDS ORDERED: NITROGLYCERIN 2% OINT 1 GM TP ONE (02:33)
[2020-02-24] MEDS ORDERED: ASPIRIN 325 MG TAB PO ONE (02:33)
[2020-02-24] MEDS ORDERED: ONDANSETRON 4 MG/2 ML INJ IV ONE (02:33)
--- NOTE | 2020-02-24 02:51 | Emergency Department Report ---
HPI - General Time Seen by Provider: 02/24/20 02:27 - HPI HPI: Room 3 The patient is a 34-year-old female present with a chief complaint of chest pain. Patient states she developed left-sided chest pain this evening feeling as though someone is "stomping" on her chest. Patient states the pain is been constant and associated with nausea/vomiting. Patient denies shortness of breath and is uncertain if she became diaphoretic when the pain started. Patient gives her chest pain a score of 10/10. Patient states her last stress test occurred before 2011 and she is never had a cardiac catheterization ED Past Medical Hx - Past Medical History Hx Hypertension: Yes Hx Congestive Heart Failure: Yes Hx Diabetes: Yes Hx GERD: Yes Hx Asthma: Yes Additional medical history: sleep apnea - Surgical History Hx Pacemaker: Yes (REPLACED 09/30/16) Hx Internal Defibrillator: Yes (replaced 09/30/2016 serial #[id number] model #[id number] [employer] [phone]) Hx Cholecystectomy: Yes Additional Surgical History: DC section. Tubal ligation. Medtronic replaced 09/30/[address] Victor Hugo Estrada MD [phone], serial #[id number] model #[id number], [employer] [phone] - Family History Family history: no significant - Social History Smoking Status: Current Every Day Smoker (1/2 pack/day) Substance Use Type: None (Denies illicit drug use), Alcohol (Occasional) - Medications Home Medications: Home Medications Medication Instructions Recorded Confirmed Last Taken Type Digoxin [Lanoxin] 0.25 mg PO DAILY 03/21/18 02/24/20 1 Day Ago History ~02/23/20 Furosemide [Lasix TAB] 40 mg PO QDAY 03/21/18 02/24/20 1 Day Ago History ~02/23/20 Metformin HCl [Metformin HCl ER] 1,000 mg PO QHS 03/21/18 02/24/20 1 Day Ago History ~02/23/20 carvediloL [Coreg] 6.25 mg PO BID 03/21/18 02/24/20 1 Day Ago History ~02/23/20 Albuterol Mdi (or & Nicu Only) 2 puff IH QID PRN #1 inhalation 03/20/19 02/24/20 1 Week Ago Rx [ProAir HFA Inhaler] ~02/17/20 Aspirin [Adult Aspirin] 81 mg PO QDAY 02/24/20 02/24/20 1 Day Ago History ~02/23/20 Insulin Glargine [Lantus VIAL] 28 unit SUB-Q QHS 02/24/20 02/24/20 1 Day Ago History ~02/23/20 Lisinopril 1 tab PO QDAY 02/24/20 02/24/20 1 Day Ago History ~02/23/20 Lispro Insulin [HumaLOG] 0 unit SQ ACHS PRN 02/24/20 02/24/20 1 Day Ago History ~02/23/20 Omega3/Dha/Epa/Fish Oil/Vit D3 1 each PO QWEEK 02/24/20 02/24/20 1 Week Ago History [Kincaid-3 + Vitamin D3 Softgel] ~02/17/20 Pantoprazole [Protonix] 40 mg PO QDAY 02/24/20 02/24/20 1 Day Ago History ~02/23/20 Potassium Chloride 1 tab PO BID 02/24/20 02/24/20 1 Day Ago History ~02/23/20 ED Review of Systems ROS: Stated complaint: CHEST PAIN Other details as noted in HPI Constitutional: diaphoresis (?) Respiratory: denies: shortness of breath Cardiovascular: chest pain Gastrointestinal: nausea, vomiting Physical Exam - Physical Exam Physical Exam: GENERAL: The patient is well-developed well-nourished female lying on stretcher using cell phone not appearing to be in acute distress. [] HEENT: Normocephalic. Atraumatic. Strabismus present. Patient has moist mucous membranes. NECK: Supple. Trachea midline CHEST/LUNGS: Clear to auscultation. There is no respiratory distress noted. HEART/CARDIOVASCULAR: Regular. There is no tachycardia. There is no gallop rub or murmur. ABDOMEN: Abdomen is soft, nontender. Patient has normal bowel sounds. There is no abdominal distention. SKIN: There is no rash. There is no edema. There is no diaphoresis. NEURO: The patient is awake, alert, and oriented. The patient is cooperative. The patient has normal speech MUSCULOSKELETAL: There is no evidence of acute injury. ED Medical Decision Making - Lab Data Result diagrams: 02/24/20 02:38 08/03/20 02:38 Lab Results 02/24/20 02/24/20 02/24/20 Range/Units 02:38 02:38 02:38 WBC 10.2 (4.5-11.0) K/mm3 RBC 4.75 (3.65-5.03) M/mm3 Hgb 11.3 (10.1-14.3) gm/dl Hct 34.5 (30.3-42.9) % MCV 73 L (79-97) fl MCH 24 L (28-32) pg MCHC 33 (30-34) % RDW 15.8 H (13.2-15.2) % Plt Count 393 (140-440) K/mm3 Lymph % (Auto) 33.9 (13.4-35.0) % Assumption % (Auto) 4.0 (0.0-7.3) % Eos % (Auto) 3.4 (0.0-4.3) % Baso % (Auto) 1.2 (0.0-1.8) % Lymph # 3.4 (1.2-5.4) K/mm3 Assumption # 0.4 (0.0-0.8) K/mm3 Eos # 0.3 (0.0-0.4) K/mm3 Baso # 0.1 (0.0-0.1) K/mm3 Seg Neutrophils % 57.5 (40.0-70.0) % Seg Neutrophils # 5.9 (1.8-7.7) K/mm3 PT 13.7 (12.2-14.9) Sec. INR 1.04 (0.87-1.13) Sodium 138 (137-145) mmol/L Potassium 3.3 L (3.6-5.0) mmol/L Chloride 101.3 (98-107) mmol/L Carbon Dioxide 19 L (22-30) mmol/L Anion Gap 21 mmol/L BUN 8 (7-17) mg/dL Creatinine 0.6 (0.6-1.2) mg/dL Estimated GFR > 60 ml/min BUN/Creatinine Ratio 13 % Glucose 203 H (65-100) mg/dL Calcium 8.6 (8.4-10.2) mg/dL Total Creatine Kinase 115 (30-135) units/L CK-MB (CK-2) 1.0 (0.0-4.0) ng/mL CK-MB (CK-2) Rel Index 0.8 (0-4) Troponin T < 0.010 (0.00-0.029) ng/mL NT-Pro-B Natriuret Pep 35.84 (0-450) pg/mL HCG, Qual (Negative) 02/24/20 Range/Units 02:38 WBC (4.5-11.0) K/mm3 RBC (3.65-5.03) M/mm3 Hgb (10.1-14.3) gm/dl Hct (30.3-42.9) % MCV (79-97) fl MCH (28-32) pg MCHC (30-34) % RDW (13.2-15.2) % Plt Count (140-440) K/mm3 Lymph % (Auto) (13.4-35.0) % Assumption % (Auto) (0.0-7.3) % Eos % (Auto) (0.0-4.3) % Baso % (Auto) (0.0-1.8) % Lymph # (1.2-5.4) K/mm3 Assumption # (0.0-0.8) K/mm3 Eos # (0.0-0.4) K/mm3 Baso # (0.0-0.1) K/mm3 Seg Neutrophils % (40.0-70.0) % Seg Neutrophils # (1.8-7.7) K/mm3 PT (12.2-14.9) Sec. INR (0.87-1.13) Sodium (137-145) mmol/L Potassium (3.6-5.0) mmol/L Chloride (98-107) mmol/L Carbon Dioxide (22-30) mmol/L Anion Gap mmol/L BUN (7-17) mg/dL Creatinine (0.6-1.2) mg/dL Estimated GFR ml/min BUN/Creatinine Ratio % Glucose (65-100) mg/dL Calcium (8.4-10.2) mg/dL Total Creatine Kinase (30-135) units/L CK-MB (CK-2) (0.0-4.0) ng/mL CK-MB (CK-2) Rel Index (0-4) Troponin T (0.00-0.029) ng/mL NT-Pro-B Natriuret Pep (0-450) pg/mL HCG, Qual Negative (Negative) - Radiology Data Radiology results: report reviewed (Chest x-ray), image reviewed (Chest x-ray) interpreted by me: Chest x-ray-no focal infiltrates, no pneumothorax [facility] [address] [place] [address] XRay Report Signed Patient: LESLYE NORMAN MR#: [id number] : 1985 Acct:[id number] Age/Sex: 34 / F ADM Date: 02/24/20 Loc: ED Attending Dr: Ordering Physician: OMARI GARRIDO MD Date of Service: 02/24/20 Procedure(s): XR chest 1V ap Accession Number(s): [id number] cc: OMARI GARRIDO MD Fluoro Time In Minutes: CHEST 1 VIEW 0329 INDICATION / CLINICAL INFORMATION: chest pain COMPARISON: 10/04/2019 FINDINGS: SUPPORT DEVICES: Pacer is again noted HEART / MEDIASTINUM: Stable LUNGS / PLEURA: Pulmonary vascularity is mildly congested appearance for an upright view. No definite focal infiltrates are seen. No pneumothorax. ADDITIONAL FINDINGS: No significant additional findings. IMPRESSION: Mild congestion Signer Name: Neo Orta MD Signed: 02/24/2020 4:05 AM Workstation Name: [id number] Transcribed By: RUBY Dictated By: Neo Orta MD Electronically Authenticated By: Neo Orta MD Signed Date/Time: 02/24/20404 DD/ 1 TD/TT: - Differential Diagnosis ACS, CHF exacerbation, pericarditis, GERD Critical care attestation.: If time is entered above; I have spent that time in minutes in the direct care of this critically ill patient, excluding procedure time. ED Disposition Clinical Impression: Chest pain Disposition: - OP ADMIT IP TO THIS HOSP Is pt being admited?: Yes Does the pt Need Aspirin: Yes Condition: Fair
[2020-02-24 03:21] LABS: Basophils # (Auto) 0.1 K/mm3 (0.0-0.1); Basophils % (Auto) 1.2 % (0.0-1.8); Eosinophils # (Auto) 0.3 K/mm3 (0.0-0.4); Eosinophils % (Auto) 3.4 % (0.0-4.3); Hematocrit 34.5 % (30.3-42.9); Hemoglobin 11.3 gm/dl (10.1-14.3); Lymphocytes # (Auto) 3.4 K/mm3 (1.2-5.4); Lymphocytes % (Auto) 33.9 % (13.4-35.0); Mean Corpuscular HGB Conc 33 % (30-34); Mean Corpuscular Volume 73 fl (79-97); Monocytes # (Auto) 0.4 K/mm3 (0.0-0.8); Platelet Count 393 K/mm3 (140-440); Red Blood Count 4.75 M/mm3 (3.65-5.03); Red Cell Distribution Width 15.8 % (13.2-15.2)
[2020-02-24 03:32] LABS: INR 1.04 (0.87-1.13)
[2020-02-24 03:34] LABS: BUN/Creatinine Ratio 13; Blood Urea Nitrogen 8 mg/dL (7-17); Calcium 8.6 mg/dL (8.4-10.2); Hemolysis Index 4
[2020-02-24] MEDS ORDERED: POTASSIUM CHLORIDE ER 20 MEQ TAB PO ONE ×2 (03:38→05:44)
--- NOTE | 2020-02-24 04:10 | XRay Report ---
CHEST 1 VIEW 0329 INDICATION / CLINICAL INFORMATION: chest pain COMPARISON: 10/04/2019 FINDINGS: SUPPORT DEVICES: Pacer is again noted HEART / MEDIASTINUM: Stable LUNGS / PLEURA: Pulmonary vascularity is mildly congested appearance for an upright view. No definite focal infiltrates are seen. No pneumothorax. ADDITIONAL FINDINGS: No significant additional findings. IMPRESSION: Mild congestion Signer Name: Neo Orta MD Signed: 02/24/2020 4:05 AM Workstation Name: [id number]
--- NOTE | 2020-02-24 06:02 | Cat Scan Report ---
CTA CHEST WITH IV CONTRAST INDICATION: Chest pain, elevated d-dimer CONTRAST: 100 cc Omnipaque 350 IV COMPARISON: Chest x-ray tonight Three-plane MIP reconstructions were produced. All CT scans at this location are performed using CT d ose reduction for ALARA by means of automated exposure control. NOTE: Resolution is decreased and artifact is introduced by the patient's size. FINDINGS: Visualized portions of the axillae and chest wall show no abnormalities though some portion s are out of the ilala-qe-teaj. Pacer is noted. No mediastinal or hilar masses are seen. Calcified ri ght hilar node is noted. No pleural effusions are seen. Visualized portions of the upper abdomen show mild fatty infiltration of the liver and cholecystectomy changes but no acute abnormalities. No obvi ous endobronchial lesions are seen. No pneumothorax or pneumomediastinum are noted. Lung kothari are c lear of infiltrates. There is mild nodularity in the lateral aspect of the right lower lobe which may be partly calcified and probably relates to granulomatous disease in view of the calcified right hil ar node. Of this cluster of nodules the largest measures 5 mm. Aorta shows no aneurysmal dilatation or obvious evidence of dissection though is not well opacified. Marginal opacification of the pulmonary arterial system was achieved. Together with the patient's siz e this makes evaluation of particularly the smaller arteries difficult. No obvious central PTE is jayjay ntified however. IMPRESSION: 1. No obvious acute abnormalities are seen. Difficult study but no obvious PTE is identified. 2. Right lower lobe nodularity, probably benign but see below. INCIDENTAL PULMONARY NODULE RECOMMENDATIONS Solid Nodule size* <6 mm -- Single or Multiple - Low Risk Patient: No routine follow-up - High Risk Patient: Optional CT at 12 months Solid Nodule size 6-8 mm -- Single - Low Risk Patient: CT at 6-12 months, then consider CT at 18-24 months - High Risk Patient: CT at 6-12 months, then CT at 18-24 months Solid Nodule size 6-8 mm -- Multiple - Low Risk Patient: CT at 3-6 months, then consider CT at 18-24 months - High Risk Patient: CT at 3-6 months, then CT at 18-24 months Solid Nodule size >8 mm -- Single - Low Risk or High Risk Patient: Consider CT at 3 months, PET/CT, or tissue sampling Solid Nodule size >8 mm -- Multiple - Low Risk Patient: CT at 3-6 months, then consider CT at 18-24 months - High Risk Patient: CT at 3-6 months, then CT at 18-24 months Subsolid Nodule (Ground glass) <6 mm - No routine follow-up Subsolid Nodule (Ground glass) >=6 mm - CT at 6-12 months to confirm persistence, then CT every 2 years until 5 years Subsolid Nodule (Part solid) <6 mm - No routine follow-up Subsolid Nodule (Part solid) >=6 mm - CT at 3-6 months to confirm persistence. If unchanged and solid component remains <6mm, annual CT s hould be performed for 5 years. Subsolid Nodule (Multiple) <6 mm - CT at 3-6 months. If stable, consider CT at 2 and 4 years. Subsolid Nodule (Multiple) >=6 mm - CT at 3-6 months. Subsequent management based on the most suspicious nodule(s). Note These recommendations do not apply to lung cancer screening, patients with immunosuppression, o r patients with known primary cancer. Note Newly detected indeterminate nodule in persons 35 years of age or older. Persons under the age of 35 should not receive follow-up unless there is a known primary cancer. Low Risk Patient -- minimal or absent history of smoking and of other known risk factors. High Risk Patient -- history of smoking or of other known risk factors. *Dimensions are average of long and short axes, rounded to the nearest millimeter. Based on 2017 Fleischner Society Guidelines found in Radiology 2017 284:228-243. [email or web address] Signer Name: Neo Orta MD Signed: 02/24/2020 5:58 AM Workstation Name: [id number]
[2020-02-24] MEDS ORDERED: MORPHINE 4 MG/1 ML INJ IV ONE (07:06)
--- NOTE | 2020-02-24 08:48 | History and Physical Report ---
History of Present Illness Date of examination: 02/24/20 Date of admission: 02/24/20 07:26 Chief complaint: Chest pain, chest congestion History of present illness: 34-year-old morbidly obese -[place] female patient with significant history of cardiomyopathy , ICD , reactive airway disease present with a chief complaint of chest pain. Patient states she developed left-sided chest pain this evening feeling as though someone is "stomping" on her chest. Patient states the pain is been constant and associated with nausea/vomiting. Patient denies shortness of breath and is uncertain if she became diaphoretic when the pain started. Patient gives her chest pain a score of 10/10. Initial work-up in the emergency room, first set of cardiac enzymes negative, chest x-ray mild congestion elevated D-dimers negative for PE Patient denies nausea vomiting or abdominal pain Patient denies headache dizziness Past History Past Medical History: diabetes, heart failure, hypertension, hyperlipidemia, other (Asthma, sleep apnea) Past Surgical History: Other (ICD, D&C , tubal ligation) Social history: smoking, alcohol abuse (Occasional). denies: prescription drug abuse Family history: no significant family history Medications and Allergies Allergies Allergy/AdvReac Type Severity Reaction Status Date / Time No Known Allergies Allergy Verified 04/07/16 16:41 Home Medications Medication Instructions Recorded Confirmed Last Taken Type Digoxin [Lanoxin] 0.25 mg PO DAILY 03/21/18 02/24/20 1 Day Ago History ~02/23/20 Furosemide [Lasix TAB] 40 mg PO QDAY 03/21/18 02/24/20 1 Day Ago History ~02/23/20 Metformin HCl [Metformin HCl ER] 1,000 mg PO QHS 03/21/18 02/24/20 1 Day Ago History ~02/23/20 carvediloL [Coreg] 6.25 mg PO BID 03/21/18 02/24/20 1 Day Ago History ~02/23/20 Albuterol Mdi (or & Nicu Only) 2 puff IH QID PRN #1 inhalation 03/20/19 02/24/20 1 Week Ago Rx [ProAir HFA Inhaler] ~02/17/20 Aspirin [Adult Aspirin] 81 mg PO QDAY 02/24/20 02/24/20 1 Day Ago History ~02/23/20 Insulin Glargine [Lantus VIAL] 28 unit SUB-Q QHS 02/24/20 02/24/20 1 Day Ago History ~02/23/20 Lisinopril 1 tab PO QDAY 02/24/20 02/24/20 1 Day Ago History ~02/23/20 Lispro Insulin [HumaLOG] 0 unit SQ ACHS PRN 02/24/20 02/24/20 1 Day Ago History ~02/23/20 Omega3/Dha/Epa/Fish Oil/Vit D3 1 each PO QWEEK 02/24/20 02/24/20 1 Week Ago History [[place]-3 + Vitamin D3 Softgel] ~02/17/20 Pantoprazole [Protonix] 40 mg PO QDAY 02/24/20 02/24/20 1 Day Ago History ~02/23/20 Potassium Chloride 1 tab PO BID 02/24/20 02/24/20 1 Day Ago History ~02/23/20 Review of Systems Constitutional: weakness, no weight loss, no weight gain, no fever, no chills Ears, nose, mouth and throat: no nasal congestion, no nasal discharge Cardiovascular: chest pain, shortness of breath, no orthopnea, no palpitations Respiratory: shortness of breath, dyspnea on exertion, no cough, no hemoptysis Gastrointestinal: no abdominal pain, no nausea, no vomiting Genitourinary Female: no flank pain, no dysuria Musculoskeletal: no myalgias, no arthritis Integumentary: no rash, no lesions Neurological: no numbness, no syncope, no convulsions Psychiatric: no anxiety, no depression Endocrine: no cold intolerance, no heat intolerance, no polydipsia, no polyuria Hematologic/Lymphatic: no easy bruising, no easy bleeding Allergic/Immunologic: no urticaria, no allergic rhinitis Exam - Constitutional Vitals: Temp Pulse Resp BP Pulse Ox 97.7 F 92 H 17 146/87 96 02/24/20 02:15 02/24/20 08:00 02/24/20 08:00 02/24/20 08:00 02/24/20 07:45 General appearance: Present: no acute distress, well-nourished, obese (Morbidly obese) - EENT Eyes: Present: PERRL. Absent: scleral icterus - Neck Neck: Present: supple, normal ROM - Respiratory Respiratory effort: normal Respiratory: bilateral: diminished, negative: rales, rhonchi, wheezing - Cardiovascular Rhythm: regular Heart Sounds: Present: S1 & S2 - Extremities Extremities: no ischemia, No edema - Abdominal General gastrointestinal: Present: soft, non-tender, non-distended, normal bowel sounds - Integumentary Integumentary: Present: clear, warm - Musculoskeletal Musculoskeletal: strength equal bilaterally, generalized weakness - Psychiatric Psychiatric: appropriate mood/affect, cooperative - Neurologic Neurologic: moves all extremities HEART Score - HEART Score Troponin: Troponin T < 0.010 ng/mL (0.00-0.029) 02/24/20 02:38 Results - Labs CBC & Chem 7: 02/24/20 02:38 02/24/20 02:38 Labs: Abnormal lab results 02/24/20 02/24/20 02/24/20 Range/Units 02:38 02:38 03:14 MCV 73 L (79-97) fl MCH 24 L (28-32) pg RDW 15.8 H (13.2-15.2) % D-Dimer (0-234) ng/mlDDU Potassium 3.3 L (3.6-5.0) mmol/L Carbon Dioxide 19 L (22-30) mmol/L Glucose 203 H (65-100) mg/dL Digoxin 0.3 L (0.9-2.0) ng/mL 02/24/20 Range/Units 04:41 MCV (79-97) fl MCH (28-32) pg RDW (13.2-15.2) % D-Dimer 324.17 H (0-234) ng/mlDDU Potassium (3.6-5.0) mmol/L Carbon Dioxide (22-30) mmol/L Glucose (65-100) mg/dL Digoxin (0.9-2.0) ng/mL Assessment and Plan --Acute on chronic congestive heart failure; IV diuretics beta-blockers,input output monitoring Echocardiogram for LV function ejection fraction --History of cardiomyopathy IV diuretics, beta-blockers, NICOLAS inhibitors, input output monitoring Follow echo for LV ejection fraction --History of AICD; cardiology following --Reactive airway disease/? Bronchial asthma; oxygen titrate O2 sats to more than 90% Nebulizers, IV steroids, inhalation steroids Pulmonary consult as needed --Elevated D-dimers; negative PE --Hypokalemia; replaced with KCl monitor electrolytes --Type 2 diabetes mellitus; Accu-Chek sliding scale coverage ADA diet and insulin --DVT prophylaxis; Lovenox --Morbid obesity; Counseling will be done for weight reduction when medically stable We will closely monitor patient adjust management as needed Plan of care reviewed with the patient and her nurse
[2020-02-24] MEDS ORDERED: ALBUTEROL 8.5 GM MDI INHALATION IH PRN (08:53)
[2020-02-24] MEDS ORDERED: ALBUTEROL 2.5 MG/3 ML NEBU IH PRN (09:04)
--- NOTE | 2020-02-24 10:53 | Consultation ---
History of Present Illness Consult date: 02/24/20 Requesting physician: KIKO PAINTER Consult reason: congestive heart failure History of present illness: The pt is a 34 YO female with a past medical history significant for HTN, DM, rupali- cardiomyopathy, AICD in situ (placed in 2011 following the of her twins). She currently resides in between [facility]. She has been seen by our practice on a prior hospitalization, she does not regularly see a car diologist. She presented with complaints of chest pain and wheezing for 1 day prior to arrival. She describes her chest pain as a "kick to the center of the chest" which is present with deep breathing. She also c/o wheezing but denies any SOB, PND, orthopnea, palpitations, n/v, diaphoresis, dizziness or syncope. She is noted to have some trace BLE edema which she states is chronic. Past History Past Medical History: diabetes, hypertension Past Surgical History: Other (AICD in situ) Medications and Allergies Allergies Allergy/AdvReac Type Severity Reaction Status Date / Time No Known Allergies Allergy Verified 04/07/16 16:41 Home Medications Medication Instructions Recorded Confirmed Last Taken Type Digoxin [Lanoxin] 0.25 mg PO DAILY 03/21/18 02/24/20 1 Day Ago History ~02/23/20 Furosemide [Lasix TAB] 40 mg PO QDAY 03/21/18 02/24/20 1 Day Ago History ~02/23/20 Metformin HCl [Metformin HCl ER] 1,000 mg PO QHS 03/21/18 02/24/20 1 Day Ago History ~02/23/20 carvediloL [Coreg] 6.25 mg PO BID 03/21/18 02/24/20 1 Day Ago History ~02/23/20 Albuterol Mdi (or & Nicu Only) 2 puff IH QID PRN #1 inhalation 03/20/19 02/24/20 1 Week Ago Rx [ProAir HFA Inhaler] ~02/17/20 Aspirin [Adult Aspirin] 81 mg PO QDAY 02/24/20 02/24/20 1 Day Ago History ~02/23/20 Insulin Glargine [Lantus VIAL] 28 unit SUB-Q QHS 02/24/20 02/24/20 1 Day Ago History ~02/23/20 Lisinopril 1 tab PO QDAY 02/24/20 02/24/20 1 Day Ago History ~02/23/20 Lispro Insulin [HumaLOG] 0 unit SQ ACHS PRN 02/24/20 02/24/20 1 Day Ago History ~02/23/20 Omega3/Dha/Epa/Fish Oil/Vit D3 1 each PO QWEEK 02/24/20 02/24/20 1 Week Ago History [[place]-3 + Vitamin D3 Softgel] ~02/17/20 Pantoprazole [Protonix] 40 mg PO QDAY 02/24/20 02/24/20 1 Day Ago History ~02/23/20 Potassium Chloride 1 tab PO BID 02/24/20 02/24/20 1 Day Ago History ~02/23/20 Active Meds: Active Medications Albuterol (Proventil) 2.5 mg IH QIDRT DARION Albuterol (Proventil) 2.5 mg IH Q4HRT PRN PRN Reason: Shortness Of Breath Carvedilol (Coreg) 6.25 mg PO BID [facility] Digoxin (Lanoxin) 0.25 mg PO DAILY [facility] Furosemide (Lasix) 40 mg PO 0600,1800 [facility] Insulin Glargine (Lantus) 10 units SUB-Q QHS [facility] Insulin Human Lispro (Humalog) 0 unit SUB-Q ACHS [facility]; Protocol Review of Systems Constitutional: no weight loss, no weight gain, no fever, no chills, no sweats Ears, nose, mouth and throat: no ear pain, no nose pain, no sinus pressure, no sinus pain Cardiovascular: chest pain, leg edema (chronic trace BLE), no orthopnea, no palpitations, no rapid/irregular heart beat, no edema, no syncope, no lightheadedness, no shortness of breath, no dyspnea on exertion Respiratory: wheezing, pain on inspiration, no cough, no shortness of breath, no dyspnea on exertion, no congestion Gastrointestinal: no abdominal pain, no nausea, no vomiting, no diarrhea, no constipation, no change in bowel habits Genitourinary Female: no pelvic pain, no flank pain, no dysuria, no urinary frequency, no urgency Musculoskeletal: no neck stiffness, no neck pain, no shooting arm pain, no arm numbness/tingling, no low back pain, no shooting leg pain Integumentary: no rash, no pruritis, no redness, no sores, no wounds Neurological: no head injury, no paralysis, no weakness, no parathesias, no numbness, no tingling, no seizures, no syncope Psychiatric: no anxiety Endocrine: no cold intolerance, no heat intolerance Hematologic/Lymphatic: no easy bruising, no easy bleeding Allergic/Immunologic: no urticaria Physical Examination Vital Signs Temp Pulse Resp BP Pulse Ox 97.7 F 93 H 17 151/95 98 02/24/20 02:15 02/24/20 02:15 02/24/20 02:15 02/24/20 02:15 02/24/20 02:15 General appearance: no acute distress HEENT: Positive: PERRL, Normocephaly, Mucus Membranes Moist Neck: Positive: neck supple, trachea midline Cardiac: Positive: Reg Rate and Rhythm, S1/S2 Lungs: Positive: Wheezes Neuro: Positive: Grossly Intact Abdomen: Negative: Tender Skin: Negative: Rash Musculoskeletal: No Pain Extremities: Present: edema (trace BLE) Results 02/24/20 02:38 02/24/20 02:38 Cardiac Enzymes 02/24/20 Range/Units 02:38 CK-MB (CK-2) 1.0 (0.0-4.0) ng/mL Coagulation 02/24/20 Range/Units 02:38 PT 13.7 (12.2-14.9) Sec. INR 1.04 (0.87-1.13) CBC 02/24/20 Range/Units 02:38 WBC 10.2 (4.5-11.0) K/mm3 RBC 4.75 (3.65-5.03) M/mm3 Hgb 11.3 (10.1-14.3) gm/dl Hct 34.5 (30.3-42.9) % Plt Count 393 (140-440) K/mm3 Lymph # 3.4 (1.2-5.4) K/mm3 [place] # 0.4 (0.0-0.8) K/mm3 Eos # 0.3 (0.0-0.4) K/mm3 Baso # 0.1 (0.0-0.1) K/mm3 Comprehensive Metabolic Panel 02/24/20 Range/Units 02:38 Sodium 138 (137-145) mmol/L Potassium 3.3 L (3.6-5.0) mmol/L Chloride 101.3 (98-107) mmol/L Carbon Dioxide 19 L (22-30) mmol/L BUN 8 (7-17) mg/dL Creatinine 0.6 (0.6-1.2) mg/dL Glucose 203 H (65-100) mg/dL Calcium 8.6 (8.4-10.2) mg/dL - Imaging and Cardiology Echo: pending EKG: report reviewed, image reviewed EKG interpretations - Telemetry EKG Rhythm: Sinus Rhythm - EKG Sinus rhythms and dysrhythmias: sinus rhythm Assessment and Plan Pt's chest pain appears pleuritic, ECG with NAF and Aydee negative for AMI x 1 set. Cont to trend Aydee and f/u ECG in AM. Pt with acute asthma exacerbation. She does not appear to be in acutely decompensated HF. Agree with present cardiac management. Obtain echo. Will follow. The patient has been seen in conjunction with Dr. Ramirez who agrees with the assessment and plan of care. - Patient Problems (1) Asthma with acute exacerbation Current Visit: Yes Status: Acute (2) Pleuritic chest pain Current Visit: Yes Status: Acute (3) Automatic implantable cardioverter-defibrillator in situ Current Visit: Yes Status: Chronic (4) History of cardiomyopathy Current Visit: Yes Status: Chronic (5) HTN (hypertension) Current Visit: Yes Status: Chronic Qualifiers: Hypertension type: essential hypertension Qualified Code(s): I10 - Essential (primary) hypertension (6) Diabetes Current Visit: Yes Status: Chronic Qualifiers: Diabetes mellitus type: type 2 (7) Obesity Current Visit: Yes Status: Chronic
[2020-02-24 11:15] LABS: Creatine Kinase MB < 1.0 ng/mL (0.0-4.0)
[2020-02-24] MEDS ORDERED: ALBUTEROL 2.5 MG/3 ML NEBU IH SCH (12:00)
[2020-02-24] MEDS: MORPHINE 2 MG/1 ML INJ IV PRN ×2 (13:48→20:01)
[2020-02-24] MEDS: DIGOXIN 0.25 MG TAB PO SCH (13:52)
[2020-02-24] MEDS: carvediloL 6.25 MG TAB PO SCH ×2 (13:54→22:16)
[2020-02-24] MEDS: INSULIN LISPRO 100 UNIT/ML SUB-Q SCH ×3 (14:30→22:14)
[2020-02-24] MEDS: FUROSEMIDE 40 MG TAB PO SCH (19:48)
[2020-02-24] MEDS: MODERATE DOSE SS, INSULIN LISPRO SUB-Q SCH ×2 (19:51→22:21)
[2020-02-24] MEDS: ALBUTEROL 2.5 MG/3 ML NEBU IH SCH (20:14)
[2020-02-24] MEDS ORDERED: predniSONE 20 MG TAB PO SCH (22:00)
[2020-02-24] MEDS ORDERED: INSULIN GLARGINE 100 UNITS/ML SUB-Q SCH (22:00)
[2020-02-24] MEDS: methylPREDNISolone Sod Succinate 125 MG/2 ML INJ IV SCH (22:15)
[2020-02-25] MEDS: MORPHINE 2 MG/1 ML INJ IV PRN ×2 (02:17→10:11)
[2020-02-25 05:52] LABS: Blood Urea Nitrogen 9 mg/dL (7-17); Calcium 8.5 mg/dL (8.4-10.2); Hemolysis Index 0
[2020-02-25 06:01] LABS: BUN/Creatinine Ratio 13
[2020-02-25] MEDS: methylPREDNISolone Sod Succinate 125 MG/2 ML INJ IV SCH ×2 (06:54→14:37)
[2020-02-25] MEDS: FUROSEMIDE 40 MG TAB PO SCH (06:54)
[2020-02-25] MEDS: INSULIN LISPRO 100 UNIT/ML SUB-Q SCH ×2 (08:00→11:58)
[2020-02-25] MEDS: MODERATE DOSE SS, INSULIN LISPRO SUB-Q SCH ×4 (08:00→17:15)
[2020-02-25] MEDS: ALBUTEROL 2.5 MG/3 ML NEBU IH SCH ×2 (08:22→16:50)
[2020-02-25 09:16] VITALS: BP 135/92
[2020-02-25] MEDS ORDERED: PANTOPRAZOLE 40 MG TAB PO SCH (10:00)
[2020-02-25] MEDS ORDERED: ASPIRIN EC 81 MG TAB PO SCH (10:00)
[2020-02-25] MEDS ORDERED: LISINOPRIL 10 MG TAB PO SCH (10:00)
[2020-02-25] MEDS: carvediloL 6.25 MG TAB PO SCH (10:11)
[2020-02-25] MEDS: DIGOXIN 0.25 MG TAB PO SCH (10:11)
--- NOTE | 2020-02-25 12:29 | Progress Note ---
Assessment and Plan tte reviewed - EF 50-55%, no significant abnormalities. Pt with acute asthma exacerbation. She does not appear to be in acutely decompensated HF. Pt's chest pain appears pleuritic, AMI r/o. Agree with present cardiac management. Currently stable cardiac status. Nothing further to add from cardiac perspective at this time. Will sign off. Recommend pt follow up in our office with Dr. Ramirez within 2 weeks ([phone]). The patient has been seen in conjunction with Dr. Ramirez who agrees with the assessment and plan of care. - Patient Problems (1) Asthma with acute exacerbation Current Visit: Yes Status: Acute (2) Pleuritic chest pain Current Visit: Yes Status: Acute (3) Automatic implantable cardioverter-defibrillator in situ Current Visit: Yes Status: Chronic (4) History of cardiomyopathy Current Visit: Yes Status: Chronic (5) HTN (hypertension) Current Visit: Yes Status: Chronic Qualifiers: Hypertension type: essential hypertension Qualified Code(s): I10 - Essential (primary) hypertension (6) Diabetes Current Visit: Yes Status: Chronic Qualifiers: Diabetes mellitus type: type 2 (7) Obesity Current Visit: Yes Status: Chronic Subjective Date of service: 02/25/20 Principal diagnosis: asthma Interval history: feeling better, in SR on tele. Objective Last Vital Signs Temp 97.9 F 02/25/20 08:05 Pulse 64 02/25/20 10:00 Resp 18 02/25/20 08:05 BP 135/92 02/25/20 08:05 Pulse Ox 97 02/25/20 08:05 - Physical Examination General: No Apparent Distress HEENT: Positive: PERRL, Normocephaly, Mucus Membranes Moist Neck: Positive: neck supple, trachea midline Cardiac: Positive: Reg Rate and Rhythm, S1/S2 Lungs: Positive: Decreased Breath Sounds Neuro: Positive: Grossly Intact Abdomen: Negative: Tender Skin: Negative: Rash Musculoskeletal: No Pain Extremities: Present: edema (trace BLE) - Labs and Meds Comprehensive Metabolic Panel 02/25/20 Range/Units 04:47 Sodium 135 L (137-145) mmol/L Potassium 4.2 D (3.6-5.0) mmol/L Chloride 97.7 L (98-107) mmol/L Carbon Dioxide 21 L (22-30) mmol/L BUN 9 (7-17) mg/dL Creatinine 0.7 (0.6-1.2) mg/dL Glucose 307 H (65-100) mg/dL Calcium 8.5 (8.4-10.2) mg/dL - Imaging and Cardiology EKG: report reviewed, image reviewed Echo: pending - EKG Sinus rhythms and dysrhythmias: sinus rhythm
--- NOTE | 2020-02-25 16:10 | Discharge Summary ---
Providers - Providers Date of Admission: 02/24/20 07:26 Date of discharge: 02/25/20 Attending physician: KIKO PAINTER 02/24/20 09:59 Consult to Physician [CONS] Routine Comment: Consulting Provider: JOSE LEGER Physician Instructions: Reason For Exam: Cardiomyopathy/AICD/shortness of breath Primary care physician: TEMPER MILL ROLLER Hospitalization Condition: Fair Disposition: DC-01 TO HOME OR SELFCARE Time spent for discharge: 32 min Core Measure Documentation - Palliative Care Palliative Care/ Comfort Measures: Not Applicable - Core Measures Any of the following diagnoses?: heart failure - Heart Failure Discharge Requirements NICOLAS/ARB for LVSD if EF <40%: Yes Beta lilia at discharge: Yes Exam - Constitutional Vitals: Temp Pulse Resp BP Pulse Ox 97.9 F 64 18 135/92 97 02/25/20 08:05 02/25/20 10:00 02/25/20 08:05 02/25/20 08:05 02/25/20 08:05 General appearance: Present: no acute distress, well-nourished - EENT Eyes: Present: PERRL, EOM intact - Neck Neck: Present: supple, normal ROM - Respiratory Respiratory effort: normal Respiratory: bilateral: diminished, negative: rales, rhonchi, wheezing - Cardiovascular Rhythm: regular Heart Sounds: Present: S1 & S2 - Extremities Extremities: no ischemia, No edema - Abdominal General gastrointestinal: Present: soft, non-tender, non-distended, normal bowel sounds - Integumentary Integumentary: Present: clear, warm - Musculoskeletal Musculoskeletal: strength equal bilaterally - Psychiatric Psychiatric: appropriate mood/affect, cooperative - Neurologic Neurologic: moves all extremities Plan Activity: advance as tolerated Diet: other (cardiac diet) Additional Instructions: If you have worsening symptoms contact MD or go to emergency room. Advised to see risk professional for further evaluation and management. Outpatient sleep study for BiPAP Follow up with: PRIMARY MD BRIDGER [Primary Care Provider] - 3-5 Days JOSE LEGER MD [Staff Physician] - 7 Days SOHA LEDBETTER MD [Staff Physician] - 7 Days Forms: Discharge Signature Page Prescriptions: Prednisone [predniSONE 10 mg (6-Day Pack, 21 Tabs)] 10 mg PO .TAPER #1 tab.ds.pk Albuterol Mdi (or & Nicu Only) [ProAir HFA Inhaler] 2 puff IH QID PRN #1 inhalation PRN Reason: Shortness Of Breath
[2020-02-26] MEDS ORDERED: FUROSEMIDE 40 MG TAB PO SCH (10:00)
== END 2020-02-25 18:14 | disposition home or self-care (01) ==
LOC: ED 01:56 → 4A 07:26
PROVIDERS: ADMIT Internal Medicine; ATTEND Internal Medicine
DX: R07.81 Pleurodynia (principal); J45.901 Unspecified asthma with (acute) exacerbation; I11.0 Hypertensive heart disease with heart failure; I50.9 Heart failure, unspecified; O90.3 Peripartum cardiomyopathy; E87.6 Hypokalemia; E11.9 Type 2 diabetes mellitus without complications; E66.01 Morbid (severe) obesity due to excess calories; K21.9 Gastro-esophageal reflux disease without esophagitis; E78.5 Hyperlipidemia, unspecified; G47.30 Sleep apnea, unspecified; F17.200 Nicotine dependence, unspecified, uncomplicated; Z95.810 Presence of automatic (implantable) cardiac defibrillator; Z98.51 Tubal ligation status; Z90.49 Acquired absence of other specified parts of digestive tract; Z79.4 Long term (current) use of insulin; Z79.82 Long term (current) use of aspirin; Z79.899 Other long term (current) drug therapy; Z68.43 Body mass index [BMI] 50.0-59.9, adult
CPT/HCPCS: 36415; 71045; 71275; 80048; 80162; 82550; 82553; 82962; 83880; 84484; 84703; 85025; 85379; 85610; 93005; 93306; 94640; 96372; 96374; 96375; 96376; 99285; G0378; J2270; J2405; J2930; J3010; Q9967; J1815